=== PATIENT | female | born 1960 | race Caucasian/White ===

== ENCOUNTER 2020-06-04 07:27 | Outpatient (CLI) | payer BC, SELFPAY ==
--- NOTE | ~2020-06-04 | MM_ITS ---
EXAMINATION: MM screening mason BI w elzbieta HISTORY: Screening TECHNIQUE: Craniocaudal and mediolateral oblique 3-D tomosynthesis images were obtained and synthetic 2-D images were generated. CAD analysis was submitted and interpreted. COMPARISON: Comparison to multiple prior studies sequentially, with oldest reviewed study dated 02/22. BREAST PARENCHYMAL COMPOSITION: The breasts are extremely dense, which lowers the sensitivity of mamm ography FINDINGS: There is no evidence of suspicious mass, calcification, or architectural distortion to sugg est malignancy in either breast. There has been no suspicious interval change. IMPRESSION: 1. No mammographic evidence of malignancy. 2. Recommend routine screening mammography in one year. BI-RADS Category 1: Negative Reviewed, dictated and finalized at location A.
== END 2020-06-04 07:28 | disposition home or self-care (01) ==
LOC: ANHIMG 07:30
PROVIDERS: PCP Internal Medicine; Visit Provider Obstetrics & Gynecology Gynecology
DX: Z12.31 Encounter for screening mammogram for malignant neoplasm of breast (principal)
CPT/HCPCS: 77063; 77067

== ENCOUNTER → 2020-08-07 11:52 | Outpatient (CLI) | payer BC, SELFPAY ==
--- NOTE | ~2020-08-07 | US_ITS ---
EXAMINATION: US abdomen limited EXAM DATE: 08/07/2020 12:11 INDICATION: R74.0 - Nonspecific elevation of levels of transaminase and lactic acid dehydrogenase [LD H] TECHNIQUE: Multiple grayscale and Doppler images of the abdomen right upper quadrant were obtained (b y a technologist who performed the scan) and subsequently reviewed. There is no prior study for shyam dias. FINDINGS: The pancreatic head and body are normal in appearance. The pancreatic tail is not visualized. The l iver has normal echogenicity and contour. There are no focal liver lesions identified. There is no evidence of intrahepatic biliary duct dilation. Portal venous flow was seen in the hepatopedal, nor mal direction and has normal Doppler waveform. No right-sided hydronephrosis. Common bile duct measures 4 mm, which is normal. The gallbladder wall is normal in thickness, with ex pected amount of distention. No sonographic evidence of pericholecystic fluid. There is no cholelit hiases. Technologist performing exam reports patient did not demonstrate sonographic Carl's sign. Please note that this sign is less reliable in patients who have received pain medication. IMPRESSION: Unremarkable abdominal ultrasound exam. Reviewed, dictated and finalized at location A. 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
== END ==
PROVIDERS: PCP Internal Medicine; Visit Provider Nurse Practitioner
DX: R74.01 Elevation of levels of liver transaminase levels (principal)
CPT/HCPCS: 76705

== ENCOUNTER 2021-07-02 07:44 | Outpatient (CLI) | payer BC, SELFPAY ==
--- NOTE | ~2021-07-02 | DEXA_ITS ---
Bone Density Report Name: Yulia Hung Age: 60 Sex: Female Ethnicity: White Date of : 1960 Indication: postmenopausal osteoporosis; monitoring treatment; prior fracture; hysterectomy; Referring Provider: ALO HERNANDEZ Study: Bone densitometry was performed. Exam Date: July 02, 2021 Accession number: [id number] Bone Density: Region BMD T-score Z-score Classification AP Spine (L1-L4) 0.782 -2.4 -0.9 Osteopenia Femoral Neck (Left) 0.521 -3.0 -1.6 Osteoporosis Total Hip (Left) 0.665 -2.3 -1.2 Osteopenia Total Hip Bilateral Avg 0.652 -2.4 -1.4 Osteopenia Femoral Neck (Right) 0.549 -2.7 -1.3 Osteoporosis Total Hip (Right) 0.637 -2.5 -1.5 Osteoporosis World Health Organization criteria for BMD impression classify patients as: Normal (T-score at or above -1.0), Osteopenia (T-score between -1.0 and -2.5), or Osteoporosis (T-score at or below -2.5). 10-year Fracture Risk: FRAX not reported because: Some T-score for Spine Total or Hip Total or Femoral Neck at or below -2.5 Treated for osteoporosis Previous Exams: Region Exam Age BMD T-score BMD Change BMD Change Date g/cm2 vs Baseline vs Previous AP Spine(L1-L4) 07/02/2021 60 0.782 -2.4 -0.126(-13.9%) 0.021(2.7%) 06/02/2019 58 0.761 -2.6 -0.147(-16.2%) 0.022(3.0%) 02/28/2017 56 0.739 -2.8 -0.170(-18.7%) 0.003(0.3%) 03/06/2015 54 0.737 -2.8 -0.172(-19.0%) -0.138(-15.8%) 02/01/2011 50 0.875 -1.6 -0.034(-3.7%)* -0.034(-3.7%)* 11/24/2007 47 0.909 -1.3 Total Hip(Left) 07/02/2021 60 0.665 -2.3 -0.054(-7.5%)# 0.015(2.3%) 06/02/2019 58 0.650 -2.4 -0.069(-9.6%)# -0.088(-12.0%) 02/28/2017 56 0.738 -1.7 0.020(2.7%)# 0.059(8.6%)* 03/06/2015 54 0.680 -2.1 -0.039(-5.4%)# -0.092(-11.9%) 02/01/2011 50 0.772 -1.4 0.053(7.4%)* 0.053(7.4%)* 11/24/2007 47 0.719 -1.8 Total Hip(Right) 07/02/2021 60 0.637 -2.5 -0.065(-9.3%)# -0.032(-4.8%)* 06/02/2019 58 0.669 -2.2 -0.033(-4.7%)# -0.042(-5.9%)* 02/28/2017 56 0.711 -1.9 0.009(1.3%)# 0.065(10.0%)* 03/06/2015 54 0.646 -2.4 -0.056(-7.9%)# -0.037(-5.5%)# 02/01/2011 50 0.683 -2.1 -0.019(-2.6%) -0.019(-2.6%) 11/24/2007 47 0.702 -2.0 *Denotes significance at 95% confidence level, LSC for AP Spine = 0.022 g/cm2, LSC for Total Hip = 0.027 g/cm2 Clinical Information Provided by Patient: Has had a low trauma fracture Is being treated for osteoporosis Has used the following medications: Fosamax (i.e. alendr
--- NOTE | ~2021-07-02 | MM_ITS ---
EXAMINATION: MM screening mason BI w elzbieta HISTORY: Screening mammogram, family history of breast cancer in her sister. TECHNIQUE: Craniocaudal and mediolateral oblique 3-D tomosynthesis images were obtained and synthetic 2-D images were generated. CAD analysis was submitted and interpreted. COMPARISON: 06/04/2020, 06/02/2019, 02/28/2017 BREAST PARENCHYMAL COMPOSITION: The breasts are heterogeneously dense, which may obscure small masses . FINDINGS: There is no evidence of suspicious mass, calcification, or architectural distortion to sugg est malignancy in either breast. There has been no suspicious interval change. IMPRESSION: 1. No mammographic evidence of malignancy. 2. Recommend routine screening mammography in one year. BI-RADS Category 1: Negative Reviewed, dictated and finalized at location A.
== END 2021-07-02 07:45 | disposition home or self-care (01) ==
LOC: ANHIMG 07:46
PROVIDERS: PCP Internal Medicine; Visit Provider Obstetrics & Gynecology Gynecology
DX: Z12.31 Encounter for screening mammogram for malignant neoplasm of breast (principal); Z78.0 Asymptomatic menopausal state; M85.89 Other specified disorders of bone density and structure, multiple sites; M81.0 Age-related osteoporosis without current pathological fracture
CPT/HCPCS: 77063; 77067; 77080

== ENCOUNTER 2022-08-13 14:25 | Outpatient (CLI) | payer BC, SELFPAY ==
--- NOTE | ~2022-08-13 | MM_ITS ---
EXAMINATION: MM screening mason BI w elzbieta HISTORY: Screening TECHNIQUE: Craniocaudal and mediolateral oblique 3-D tomosynthesis images were obtained and synthetic 2-D images were generated. CAD analysis was submitted and interpreted. COMPARISON: Comparison to multiple prior studies sequentially, with oldest reviewed study dated 03/06. BREAST PARENCHYMAL COMPOSITION: The breasts are extremely dense, which lowers the sensitivity of mamm ography FINDINGS: There is no evidence of suspicious mass, calcification, or architectural distortion to sugg est malignancy in either breast. There has been no suspicious interval change. IMPRESSION: 1. No mammographic evidence of malignancy. 2. Recommend routine screening mammography in one year. BI-RADS Category 1: Negative Reviewed, dictated and finalized at location A. 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
== END 2022-08-13 14:26 | disposition home or self-care (01) ==
PROVIDERS: PCP Internal Medicine; Visit Provider Nurse Practitioner
DX: Z12.31 Encounter for screening mammogram for malignant neoplasm of breast (principal)
CPT/HCPCS: 77063; 77067

== ENCOUNTER 2023-05-04 13:45 | Outpatient (CLI) | payer BC, SELFPAY ==
--- NOTE | ~2023-05-04 | MR_ITS ---
EXAMINATION: MR breast BI wo/w con INDICATION: Extremely dense breast tissue TECHNIQUE: Axial VIBRANT pre and dynamic post contrast, Sagittal VIBRANT post contrast, Axial T2 STIR ASSET COMPARISON: None CONTRAST: Multihance, 10 cc BREAST COMPOSITION: Extreme fibroglandular tissue FINDINGS: RIGHT BREAST: There is minimal background parenchymal enhancement. No abnormal enhancement is present after contrast administration. No pathologically enlarged axillary or internal mammary lymph nodes a re identified. LEFT BREAST: There is minimal background parenchymal enhancement. No abnormal enhancement is present after contrast administration. No pathologically enlarged axillary or internal mammary lymph nodes ar e identified. IMPRESSION: 1. Unremarkable breast MRI. BI-RADS Category 1: Negative Reviewed, dictated and finalized at location A.
== END 2023-05-04 13:46 | disposition home or self-care (01) ==
LOC: ANHIMG 13:50
PROVIDERS: PCP Internal Medicine; Visit Provider Obstetrics & Gynecology Gynecology
DX: R92.2 Inconclusive mammogram (principal); Z80.3 Family history of malignant neoplasm of breast
CPT/HCPCS: 77049; A9577; C8908

== ENCOUNTER 2023-09-15 09:58 | Outpatient (CLI) | payer BC, SELFPAY ==
--- NOTE | ~2023-09-15 | DEXA_ITS ---
Bone Density Report Name: DARIN COSME Age: 63 Sex: Female Ethnicity: White Date of : 1960 Indication: postmenopausal osteoporosis; monitoring treatment; prior fracture; hysterectomy; Referring Provider: CARMELA, MICHELLE Study: Bone densitometry was performed. Exam Date: September 15, 2023 Accession number: [id number] Bone Density: Region BMD T-score Z-score Classification AP Spine(L1-L4) 0.795 -2.3 -0.6 Osteopenia Femoral Neck (Left) 0.554 -2.7 -1.2 Osteoporosis Total Hip (Left) 0.693 -2.0 -0.9 Osteopenia Femoral Neck (Right) 0.558 -2.6 -1.2 Osteoporosis Total Hip (Right) 0.646 -2.4 -1.3 Osteopenia Total Hip Mean 0.670 -2.2 -1.1 Osteopenia World Health Organization criteria for BMD impression classify patients as: Normal (T-score at or above -1.0), Osteopenia (T-score between -1.0 and -2.5), or Osteoporosis (T-score at or below -2.5). 10-year Fracture Risk: FRAX not reported because: Some T-score for Spine Total or Hip Total or Femoral Neck at or below -2.5 Treated for osteoporosis Previous Exams: Region Exam Age BMD T-score BMD Change BMD Change Date g/cm2 vs Baseline vs Previous AP Spine (L1-L4) 09/15/2023 63 0.795 -2.3 0.058 (7.9%)* 0.013 (1.6%) 07/02/2021 60 0.782 -2.4 0.046 (6.2%)* 0.021 (2.7%) 06/02/2019 58 0.761 -2.6 0.025 (3.4%)* 0.022 (3.0%) 02/28/2017 56 0.739 -2.8 0.003 (0.3%) 0.003 (0.3%) 03/06/2015 54 0.737 -2.8 Total Hip(Left) 09/15/2023 63 0.693 -2.0 0.013 (1.9%) 0.028 (4.3%)* 07/02/2021 60 0.665 -2.3 -0.015 (-2.2%) 0.015 (2.3%) 06/02/2019 58 0.650 -2.4 -0.030 (-4.4%) -0.088 (-12.0% 02/28/2017 56 0.738 -1.7 0.059 (8.6%)* 0.059 (8.6%)* 03/06/2015 54 0.680 -2.1 Total Hip(Right) 09/15/2023 63 0.646 -2.4 0.000 (0.1%) 0.010 (1.5%) 07/02/2021 60 0.637 -2.5 -0.009 (-1.4%) -0.032 (-4.8%) 06/02/2019 58 0.669 -2.2 0.023 (3.5%) -0.042 (-5.9%) 02/28/2017 56 0.711 -1.9 0.065 (10.0%)* 0.065 (10.0%)* 03/06/2015 54 0.646 -2.4 *Denotes significance at 95% confidence level, LSC for AP Spine = 0.022 g/cm2, LSC for Total Hip = 0.027 g/cm2 Clinical Information Provided by Patient: Has had a low trauma fracture Is being treated for osteoporosis Has used the following medications: Prolia (i.e. denosumab), Vitamin D, Calcium Has the following medical conditions: Hysterectomy Patient maximum height was 64.75 Menopause Age: 49 Onset of menses at age 12 Number of child
== END 2023-09-15 09:59 | disposition home or self-care (01) ==
PROVIDERS: PCP Internal Medicine; Visit Provider Nurse Practitioner
DX: M81.0 Age-related osteoporosis without current pathological fracture (principal); M85.88 Other specified disorders of bone density and structure, other site; M85.852 Other specified disorders of bone density and structure, left thigh; M85.851 Other specified disorders of bone density and structure, right thigh
CPT/HCPCS: 77080

== ENCOUNTER 2024-05-10 15:45 | Outpatient (CLI) | payer BC, SELFPAY ==
--- NOTE | ~2024-05-10 | MM_ITS ---
EXAMINATION: MM screening mason BI w elzbieta HISTORY: Screening TECHNIQUE: Craniocaudal and mediolateral oblique 3-D tomosynthesis images were obtained and synthetic 2-D images were generated. CAD analysis was submitted and interpreted. COMPARISON: Comparison to multiple prior studies sequentially, with oldest reviewed study dated 02/17. BREAST PARENCHYMAL COMPOSITION: Dense: The breasts are extremely dense, which lowers the sensitivity of mammography. FINDINGS: There is no evidence of suspicious mass, calcification, or architectural distortion to sugg est malignancy in either breast. There has been no suspicious interval change. IMPRESSION: 1. No mammographic evidence of malignancy. 2. Recommend routine screening mammography in one year. BI-RADS Category 1: Negative Reviewed, dictated and finalized at location B.
== END 2024-05-10 15:46 | disposition home or self-care (01) ==
LOC: ANHIMG 15:47
PROVIDERS: PCP Clinical Nurse Specialist; Visit Provider Nurse Practitioner
DX: Z12.31 Encounter for screening mammogram for malignant neoplasm of breast (principal)
CPT/HCPCS: 77063; 77067

== ENCOUNTER 2025-01-07 00:19 | Emergency (ER) | payer MEDICARE, SELFPAY ==
--- NOTE | ~2025-01-07 | CT_ITS ---
CT of the Abdomen and Pelvis: Indication: Abdominal pain Technique: 2.5 mm axial scans were obtained through the abdomen and pelvis following intravenous adm inistration of 100 cc of Omnipaque 350. Dose reduction technique was used on this scan by utilizing a utomated exposure control and iterative reconstruction technique. The dose-length product (DLP) was 1 88.20 mGy-cm. Findings: Scans through the lung bases are unremarkable. The liver, spleen, pancreas, gallbladder, adrenals and kidneys are within normal limits. No evidence of aortic aneurysm. No lymphadenopathy. No bowel obstruction or bowel wall thickening. There is no evidence to suggest acute appendicitis. Images through the pelvis were performed. There is left ovarian cyst versus left bladder diverticulum with small stone within it. Urinary bladder otherwise unremarkable. Probable calcified right-sided f ibroid present. No ascites. Impression: No acute abnormality. Left ovarian cyst versus left bladder diverticulum with small stone within it. Reviewed, dictated and finalized at [facility]. Impression: No acute abnormality. Left ovarian cyst versus left bladder diverticulum with small stone within it.
[2025-01-07 00:18] VITALS: BP 107/55; PULSE 107; RESP 17; TEMP 36.8; O2SAT 100
[2025-01-07 00:36] LABS: Basophils Percent Auto 0.4 % (0.2-1.2); Eosinophils Percent Auto 0.4 % (0-4.4); Hematocrit 42.5 % (37.0-47.0); Hemoglobin 14.1 g/dL (12.0-15.0); Immature Granulocyte Absolute 0.02 K/mm3 (0.00-0.031); Immature Granulocyte Percent A 0.2 % (0-0.5); Lymphocytes Absolute Auto 0.56 K/mm3 (0.9-3.2); Lymphocytes Percent Auto 6.8 % (18.3-44.2); Mean Corpuscular HGB Conc 33.2 g/dl (32-36); Mean Corpuscular Hemoglobin 28.7 pg (26-34); Mean Corpuscular Volume 86.4 fl (80-100); Monocytes Absolute Auto 0.8 K/mm3 (0.1-0.6); Monocytes Percent Auto 9.3 % (2.6-8.5); Neutrophils Absolute Auto 6.9 K/mm3 (1.3-6.7); Neutrophils Percent Auto 82.9 % (45.5-73.1); Platelet Count Result 204 k/mm3 (150-375); Red Blood Count 4.92 M/mm3 (4.2-5.4); Red Cell Distribution Width 13.8 % (11.5-14.5); White Blood Count 8.3 K/mm3 (4.5-10.0)
--- NOTE | 2025-01-07 01:06 | ECG_ITS ---
Test Date: 2025-01-07 02:21:13 Measurements Intervals [place] Rate: 80 P: 66 MI: 186 QRS: 44 QRSD: 93 T: 73 QT: 415 QTc: 481 Interpretive Statements SINUS RHYTHM WITH OCCASIONAL SUPRAVENTRICULAR PREMATURE COMPLEXES BORDERLINE R WAVE PROGRESSION, ANTERIOR LEADS BORDERLINE ST ABNORMALITY- INF/LAT LEADS BASELINE ARTIFACT- I, III, AVR, AVL ,AVF BORDERLINE ECG No previous ECG available for comparison Electronically Signed On 01-07-2025 06:35:38 CDT by Ramón Matthews D.O.
[2025-01-07 01:10] LABS: Alanine Aminotransferase 21 U/L (6-35); Albumin Level 5.1 g/dL (3.5-5.1); Alkaline Phosphatase 47 U/L (38-126); Anion Gap 17 mmol/L (4-12); Aspartate Amino Transferase 27 U/L (14-36); Bilirubin,Total 0.8 mg/dL (0.2-1.3); Blood Urea Nitrogen 25 mg/dL (7-17); Calcium 10.1 mg/dL (8.4-10.2); Carbon Dioxide 20 mmol/L (22-30); Chloride 102 mmol/L (98-107); Estimated CRCL calculation 53 ml/min; Estimated Glomerular Filt Rate > 60; Glucose 189 mg/dL (65-110); Lipase 105 U/L (23-300); Potassium 4.2 mmol/L (3.4-5.0); Sodium 139 mmol/L (137-145)
[2025-01-07] MEDS: SODIUM CHLORIDE 0.9% IV 1,000 ML 999 ML IV CONT ×2 (01:12→02:15)
[2025-01-07] MEDS: ONDANSETRON INJ 4 MG/2 ML VIAL IV PUSH ×2 (01:12→02:38)
--- OUTSIDE RECORDS SUMMARY | 2025-01-07 02:00 | XMS_ITS | Encounter Summary ---
Author Organization [facility] Address [address] [place] [address] Care Team Providers Care Associate Professor Of Biblical Studies Name Role Phone Ayana Nigel Nyasia QUIÑONES Primary Care Provider [phone] Encounter Details Date Type Department Care Team (Late st Contact Info) Description 06/18/2024 Lab Requisition [facility] - DermPath Lab [address] [place] [id number] Annelise Liang MD [address] [place] [address] Social History Tobacco Use Types Packs/Day Years Used Date Smoking Tobacco: Never Smokeless Tobacco: Never Alcohol Use Standard Drinks/Week Comments Not Currently 0 (1 standard drink = 0.6 oz pur e alcohol) Comments No Sex and Gender Information Value Date Recorded Sex Assigned at Not on file Legal Sex Female 8:41 AM CDT Gender Identity Not on file Sexual Orientation Not on file documented as of this encounter Plan of Treatment Not on file documented as of this encounter Goals Goal Patient Goal Type Associated Problems Recent Progress Patient-Stated? Author Medication Management General On track( 021 10:25 AM CDT) No Jasmin Roa, RN Note: Expected end date: ongoing Interventions: Take all medications as prescribed documented as of this encounter Procedures Procedure Name Priority Date/Time Associated Diagnosis Comments DERMATOPATHOLOGY Routine 06/18/2024 8:20 AM CDT documented in this encounter Results * DERMATOPATHOLOGY (06/18/2024 8:20 AM CDT) Case Report Dermatopathology Report Case: [id number] Authorizing Provider: Annelise Liang MD Collected: 06/18/2024 08:20 AM Ordering Location: [facility] - Received: 06/18/2024 04:23 PM DermPath Lab Pathologist: Gloria Esquivel MD Specimen: Skin, left knee 1:34 PM CDT DERMATOPATHOLOGY LABORATORY Final Diagnosis Specimen A. SKIN, left knee: COMBINED NEVUS (BANAL & BLUE) (D22.9) 1:34 PM CDT DERMATOPATHOLOGY LABORATORY Clinical History R/O: Nevus, Irregular border, Irregular color, Brown papule, SK 1:34 PM CDT DERMATOPATHOLOGY LABORATORY Gross Description Specimen A: Received is one formalin filled container labeled with the patient's name and designated left knee. The specimen consists of a shave biopsy measuring 4x3x1 mm. Jar 0. 1:34 PM CDT DERMATOPATHOLOGY LABORATORY Microscopic Description Specimen A. SKIN, left knee: Within the dermis, there are oval and dendritic shaped melanocytes and melanophages. There are also nests of round and oval melanocytes. 1:34 PM CDT DERMATOPATHOLOGY LABORATORY Disclaimer An external and internal positive and negative controls are appropriate for the histochemical, immunohistochemical and immunofluorescence stain(s) in this case (if any), except where stated explicitly. The performance characteristics of the stain(s) cited in this report were developed and its performance characteristic determined by the Dermatopathology Laboratory at [facility], directed by Dr. Letty Zuniga. These tests need not be, and therefore are not, approved by the [place] Food and Drug Administration. The tests are used for clinical purposes. Billing Codes Specimen Charges Stain Charges 91284 1 1:34 PM CDT DERMATOPATHOLOGY LABORATORY Embedded Images 1:34 PM CDT DERMATOPATHOLOGY LABORATORY Pathology/Cytolo gy TISSUE SPECIMEN FROM SKIN / Unknown 06/18/2024 8:20 AM CDT 06/18/2024 4:23 PM CDT us Annelise Liang MD LAB - PATHOLOGY/CYTOLOGY ORD ERABLES Final Result DERMATOPATHOLOGY LABORATORY [facility] - Department of Dermatology [facility] [address] [place] [address], [address] [phone] documented in this encounter Visit Diagnoses Not on filedocumented in this encounter Care Teams Associate Professor Of Biblical Studies Relationship Specialty Start Date End Date Nigel Piña DO PCP - General 08/26/20 documented as of this encounter
--- OUTSIDE RECORDS SUMMARY | 2025-01-07 02:00 | XMS_ITS | Clinical Summary ---
Author Organization [facility] Address [address] [place] [address] Care Team Providers Care Chief Petroleum Engineer Name Role Phone Nigel Piña DO Primary Care Provider [phone] Source Comments [facility],non-owned Affiliates and Associated Physician Practices is amultiple site organization consisting of ambulatory clinics and hospital sitesin [place], [place], [place] and [place]. This disclosure is being madepursuant to the Care Everywhere program and may not contain all information available regarding this patient. Last updated 18.[facility] Allergies No known active allergies Medications * Be aware that medications may not be up to date on this document. Alwaysverify current medications with the patient. Denosumab (PROLIA SC) Active B COMPLEX-C PO 2 tabs daily Active Cholecalciferol (VITAMIN D-3) 25 MCG (1000 UT) 2 tabs daily Active Calcium Carbonate-Vitami n D ([facility] CALCIUM/VIT D SOFT CHEWS PO) Take 650 mg by mouth Active Biotin 1000 MCG Acti ve Active Problems Problem Noted Date Diagnosed Date Chronic hepatitis C without hepatic coma 020 Overview (01/08/2021): Genotype 1a Date of Exam: 01/08/2021 LSM, kPa 6.0 CAP 149 Osteoporosis 03/20/2020 Family History Medical History Relation Name Comments Hepatitis Brother 1 Lymphoma Brother 2 Cancer - Breast Sister Relation Name Status Comments Brother 1 Brother 2 Sister Social History Tobacco Use Types Packs/Day Years Used Date Smoking Tobacco: Never Smokeless Tobacco: Never Tobacco Cessation:Counseling Given: Yes Alcohol Use Standard Drinks/Week Comments Not Currently 0 (1 standard drink = 0.6 oz pur e alcohol) Comments No Sex and Gender Information Value Date Recorded Sex Assigned at Not on file Legal Sex Female 8:41 AM CDT Gender Identity Not on file Sexual Orientation Not on file Last Filed Vital Signs Vital Sign Reading Time Taken Comments Blood Pressure 115/61 06/25/2021 10:35 AM CDT Pulse 72 06/25/2021 10:35 AM CDT Temperature 36.7 C (98 F) 06/25/2021 10:35 AM CDT Respiratory Rate 16 04/05/2021 12:40 PM CDT Oxygen Saturation 100% 06/25/2021 10:35 AM CDT Inhaled Oxygen Concentration - - Weight 52.2 kg (115 lb) 06/25/2021 10:35 AM CDT Height 164.5 cm (5' 4.75 ) 04/05/2021 12:40 PM C DT Body Mass Index 19.29 04/05/2021 12:40 PM CDT Plan of Treatment Health Maintenance Due Date Last Done Comments BONE DENSITY TESTING 1960 COLOGUARD (AGES 45-75) - COLON CA SCREENING 1960 COLON MONITORING 1960 COLONOSCOPY - COLON CA SCREENING 1960 CT COLONOGRAPHY - COLON CA SCREENING 1960 Colorectal Cancer Screening 1960 FIT - COLON CA SCREENING 1960 FLEX SIG - COLON CA SCREENING 1960 LIPID TESTING 1960 MAMMOGRAM 1960 PAP SMEAR 1960 HIV SCREENING 1974 DTAP/TDAP/TD VACCINES (1 - Tdap) 1978 PNEUMOCOCCAL VACCINE 50+ (1 of 2 - PCV) 1978 ZOSTER VACCINE (1 of 2) 2009 HEPATITIS B VACCINE (1 of 3 - Risk 3-dose series) 2019 Respiratory Syncytial Virus (RSV) Vaccine Pt: or over 60 yrs (1 - Risk 60-74 years 1-dose series) 2019 COVID-19 VACCINE (2 - season) 2024 01/03/2021 DEPRESSION SCREENING 09/26/2024 INFLUENZA VACCINE (Season Ended) 2025 07/07/2020, 07/05/2019, 07/19/2018, Additional history exists HEPATITIS C SCREENING Completed 07/02/2021 , 06/25/2021, 06/17/2021, Additional history exists HIB VACCINE Aged Out No longer eligi ble based on patient's age to complete this topic HPV VACCINE Aged Out No longer eligi ble based on patient's age to complete this topic MENINGOCOCCAL (Group B) VACCINE SHARED DECISION-MAKING Aged Out No longer eligible based on patient's age to complete this topic MENINGOCOCCAL GROUPS A/C/Y/W VACCINE Aged Out No longer eligible based on patient's age to complete this topic Goals Goal Patient Goal Type Associated Problems Recent Progress Patient-Stated? Author Medication Management General On track( 021 10:25 AM CDT) Jasmin Smith, RN Note: Expected end date: ongoing Interventions: Take all medications as prescribed Procedures Procedure Name Priority Date/Time Associated Diagnosis Comments HEPATITIS C RNA QUANTITATIVE Routine 07/02/2021 7:08 AM CDT Chronic hepatitis C without hepatic coma from Last 3 Months or Most Recently Relevant to Health Maintenance Results * HEPATITIS C RNA QUANTITATIVE (07/02/2021 7:08 AM CDT) Hepatitis C Virus Quantitation HCV Not Detected IU/mL [facility] INSURANCE BILL Hepatitis C Virus Log 10 NOT NEEDED log10 IU/mL [facility] INSURANCE BILL Comment: Unable to calculate result since non-numeric result obtained for component test. Ancillary determined the test is not needed. Test Information [facility] INSURANCE BILL Comment:The quantitative ran ge of this assay is 15 IU/mL to 100 million IU/mL. Hepatitis C Virus GenoSure (R) NS3/4A NOT NEEDED [facility] INSURANCE BILL Comment: Not indicated Ancillary determined the test is not needed. Blood BLOOD SPECIMEN / Unknown 07/02/2021 7:08 AM CDT 07/02/2021 Narrative Resulting Agency Comment Lab Testing performed at: [facility] [id number] [place] Norah Griffin BUFFET ATTENDANT-CLINICAL PSYCHOLOGY TEACHER LAB - CHEMISTRY BELA ZAMBRANO Final Result [facility] INSURANCE BILL [address] [place] [address] from Last 3 Months or Most Recently Relevant to Health Maintenance Insurance ANTHEM ANTHEM Care Teams Chief Petroleum Engineer Relationship Specialty Start Date End Date Nigel Piña DO PCP - General 08/26/20
--- OUTSIDE RECORDS SUMMARY | 2025-01-07 02:00 | XMS_ITS | Encounter Summary ---
Author Organization [facility] Address [address] [facility] [place] [address] Care Team Providers Care Piano Instructor Name Role Phone LizbethNigel lopez Primary Care Provider [phone] Encounter Details Date Type Department Care Team (Late st Contact Info) Description 02/08/2019 Lab Requisition [facility] [address] [facility], [place] [phone] Annelise Liang MD [address] [facility] 3 [place] [address] Social History Tobacco Use Types Packs/Day Years Used Date Smoking Tobacco: Never Assessed Comments Unknown Sex and Gender Information Value Date Recorded Sex Assigned at Not on file Legal Sex Female 8:41 AM CDT Gender Identity Not on file Sexual Orientation Not on file documented as of this encounter Plan of Treatment Not on file documented as of this encounter Procedures Procedure Name Priority Date/Time Associated Diagnosis Comments DERMATOPATHOLOGY Routine 02/07/2019 12:0 0 AM CDT documented in this encounter Results * DERMATOPATHOLOGY (02/07/2019 12:00 AM CDT) Case Report Dermatopathology Report Case: [id number] Authorizing Provider: Annelise Liang MD Collected: 02/07/2019 12:00 AM Pathologist: Tim Zuniga MD Received: 02/08/2019 06:17 AM Specimen: Skin, upper abdomen 2:23 PM CDT DERMATOPATHOLOGY LABORATORY Final Diagnosis Specimen A. SKIN, upper abdomen: VACUOLAR INTERFACE DERMATITIS WITH FULL THICKNESS DYSKERATOSIS (L30.8) POST-INFLAMMATORY PIGMENT ALTERATION (L81.9) (see microscopic description and comment) 2:23 PM T DERMATOPATHOLOGY LABORATORY Clinical History Fixed drug, early EM, bite 2:23 PM CDT DERMATOPATHOLOGY LABORATORY Gross Description Specimen A: Received is one formalin filled container labeled with the patient's name and designated upper abdomen. The specimen consists of a shave biopsy measuring 9x8x2 mm. Jar 0. 2:23 PM CDT DERMATOPATHOLOGY LABORATORY Microscopic Description Specimen A. SKIN, upper abdomen: Sections show overlying parakeratosis. There are scattered dyskeratotic keratinocytes throughout the full thickness of the epidermis and vacuolar alteration along the basal cell layer. A perivascular and perifollicular lymphocytic infiltrate with few scattered eosinophils and rare neutrophils is observed in the superficial dermis. There are scattered melanophages in the superficial dermis. COMMENT: Given the parakeratosis, mixed inflammatory infiltrate, and adnexal extension, these histologic findings are favored to represent a fixed drug eruption though a single lesion of erythema multiforme cannot be entirely excluded. 2:23 PM CDT DERMATOPATHOLOGY LABORATORY Disclaimer An external and internal positive and negative controls are appropriate for the histochemical, immunohistochemical and immunofluorescence stain(s) in this case (if any), except where stated explicitly. The performance characteristics of the stain(s) cited in this report were developed and its performance characteristic determined by the Dermatopathology Laboratory at [facility], directed by Dr. Letty Zuniga. These tests need not be, and therefore are not, approved by the [place] Food and Drug Administration. The tests are used for clinical purposes. Billing Codes Specimen Charges Stain Charges 29864 1 2:23 PM CDT DERMATOPATHOLOGY LABORATORY Embedded Images 2:23 PM CDT DERMATOPATHOLOGY LABORATORY Pathology/Cytolog y TISSUE SPECIMEN FROM SKIN / Unknown 02/07/2019 02/08/2019 6:17 AM CDT Annelise Liang MD LAB - PATHOLOGY/CYTOLOGY ORD ERABLES Final Result DERMATOPATHOLOGY LABORATORY [facility] - Department of Dermatology [facility] [facility], 5th Floor Lab B [address] [phone] documented in this encounter Visit Diagnoses Not on filedocumented in this encounter Care Teams Piano Instructor Relationship Specialty Start Date End Date Nigel Piña DO PCP - General 08/26/20 documented as of this encounter
--- OUTSIDE RECORDS SUMMARY | 2025-01-07 02:00 | XMS_ITS | CONTINUITY OF CARE DOCUMENT ---
Author Name yaz mukherjee Address Unknown Organization [facility] Address [address] [address] [place] [address] Phone [phone] Care Team Providers Care Receiver/Laborer Name Role Phone yaz mukherjee Unavailable Unavailable
--- OUTSIDE RECORDS SUMMARY | 2025-01-07 02:00 | XMS_ITS | Encounter Summary ---
Author Organization [facility] Address [address] [facility] [place] [address] Care Team Providers Care Ball Mill Mixer Name Role Phone LizbethNigel lopez Primary Care Provider [phone] Encounter Details Date Type Department Care Team (Late st Contact Info) Description 05/20/2020 Lab Requisition [facility] [address] [facility], [place] [phone] Annelise iLang MD [address] [facility] 3 [place] [address] Social History Tobacco Use Types Packs/Day Years Used Date Smoking Tobacco: Never Smokeless Tobacco: Never Comments No Sex and Gender Information Value Date Recorded Sex Assigned at Not on file Legal Sex Female 8:41 AM CDT Gender Identity Not on file Sexual Orientation Not on file COVID-19 Exposure Response Date Recorded In the last month, have you been in contact with someone who was confirmed or suspected to have Coronavirus / COVID-19? No / Unsure 05/20/2020 11:15 AM CDT documented as of this encounter Plan of Treatment Not on file documented as of this encounter Procedures Procedure Name Priority Date/Time Associated Diagnosis Comments DERMATOPATHOLOGY Routine 05/19/2020 12:0 0 AM CDT documented in this encounter Results * DERMATOPATHOLOGY (05/19/2020 12:00 AM CDT) Case Report Dermatopathology Report Case: [id number] Authorizing Provider: Annelise Liang MD Collected: 05/19/2020 12:00 AM Ordering Location: [facility] Received: 05/20/2020 06:45 AM Pathologist: Gloria Esquivel MD Specimen: Skin, right ala 0 2:11 PM CDT DERMATOPATHOLOGY LABORATORY Final Diagnosis Specimen A. SKIN, right ala: HYPERPLASTIC (HYPERTROPHIC) ACTINIC KERATOSIS; EXTENDING TO THE BASE OF THE SPECIMEN (L57.0) (see microscopic description and comment) 0 2:11 PM CDT DERMATOPATHOLOGY LABORATORY Clinical History R/O BCC vs FP. Non-healing, pink papule. 0 2:11 PM CDT DERMATOPATHOLOGY LABORATORY Gross Description Specimen A: Received is one formalin filled container labeled with the patient's name and designated right ala. The specimen consists of a shave measuring [id number]. Jar 0. 0 2:11 PM CDT DERMATOPATHOLOGY LABORATORY Microscopic Description Specimen A. SKIN, right ala: There is hyperkeratosis alternating with parakeratosis. There is epidermal hyperplasia with disorderly maturation of keratinocytes with nuclear pleomorphism confined to the lower half of the epidermis. This process extends to the base of the specimen. COMMENT: A squamous cell carcinoma cannot be ruled out. Additional deeper sections were obtained and reviewed. 0 2:11 PM CDT DERMATOPATHOLOGY LABORATORY Disclaimer An external and internal positive and negative controls are appropriate for the histochemical, immunohistochemical and immunofluorescence stain(s) in this case (if any), except where stated explicitly. The performance characteristics of the stain(s) cited in this report were developed and its performance characteristic determined by the Dermatopathology Laboratory at [facility], directed by Dr. Letty Zuniga. These tests need not be, and therefore are not, approved by the [place] Food and Drug Administration. The tests are used for clinical purposes. Billing Codes Specimen Charges Stain Charges 52565 1 0 2:11 PM CDT DERMATOPATHOLOGY LABORATORY Embedded Images 0 2:11 PM CDT DERMATOPATHOLOGY LABORATORY Pathology/Cytolog y TISSUE SPECIMEN FROM SKIN / Unknown 05/19/2020 05/20/2020 6:45 AM CDT us Annelise Liang MD LAB - PATHOLOGY/CYTOLOGY ORD ERABLES Final Result DERMATOPATHOLOGY LABORATORY [facility] - Department of Dermatology [employer] [facility]/[address] [phone] documented in this encounter Visit Diagnoses Not on filedocumented in this encounter Care Teams Ball Mill Mixer Relationship Specialty Start Date End Date Nigel Piña DO PCP - General 08/26/20 documented as of this encounter
--- NOTE | 2025-01-07 02:35 | PC.NURSE ---
P ambulated to bathroom to get a urine sample, pt states she had diarrhea at the same time so she was unable to provide a sample. Pt is getting more IV fluids at this time and will try again soon.
[2025-01-07] MEDS: MORPHINE SULFATE (*CRX) 4 MG/ML INJ IV PUSH (02:38)
[2025-01-07] MEDS: DICYCLOMINE HCL INJ 20 MG/2 ML VIAL IM (02:38)
[2025-01-07 03:45] LABS: Add Urine Microscopic? YES; Appearance Urine Clear (Clear); Bacteria Urine None Seen /hpf; Bilirubin Urine Negative (Negative); Blood Urine Negative (Negative); Color Urine Yellow (Yellow); Glucose Urine UA Negative (Negative); Ketones Urine 1+ mg/dL (Negative); Leukocyte Esterase Ur Negative LEU/UL (Negative); Nitrate Urine Negative (Negative); Non Pathogenic Casts 0-2; Protein Urine Trace mg/dL (Negative); RBC Urine 0-2 /hpf (0-2); Specific Grav Ur 1.038 (1.001-1.035); Squamous Epithelial Cell Urine None Seen /hpf (Few); Urobilinogen Urine 0.2 mg/dL (<2.0); WBC Urine 0-5 /hpf (0-3); pH Urine 8.5 (5.0-9.0)
--- NOTE | 2025-01-07 03:52 | ED_ITS ---
HPI - General Adult General Chief complaint: Nausea/Vomiting/Diarrhea Stated complaint: N/V/D X 3 HOURS Time Seen by Provider: 01/07/25 01:40 History of Present Illness HPI narrative: Patient is a 64-year-old female presents emergency department chief complaint of nausea vomiting diarrhea since 8:15 p.m.. Patient states she got some cramping throughout her abdomen reports that she has been unable to keep anything down reports she has had multiple bouts of diarrhea the patient reports she feels very dehydrated Related Data Home Medications ?Medication ?Instructions ?Recorded ?Confirmed ?Last Taken ?Type calcium acetate 667 mg tablet 667 mg PO ONCE 07/14/22 07/23/24 Unknown History cholecalciferol (vitamin D3) 50 50 mcg PO DAILY 07/14/22 07/23/24 Unknown History mcg (2,000 unit) capsule vitamin B complex (B 1 tablet PO DAILY 07/14/22 07/23/24 Unknown History Complex-Vitamin B12 tablet) Allergies Allergy/AdvReac Type Severity Reaction Status Date / Time No Known Allergies Allergy Unverified 07/23/24 08:10 Review of Systems 2 Review of Systems: A 10 system review of systems was completed on the patient and is negative except for what is stated in the HPI. Nursing and ancillary documentation was reviewed. [facility] Past Medical History Medical History Hepatitis C Positive hepatitis C antibody test Leukopenia Leukocytosis Hypermobile Teresa-Danlos syndrome Lipedema Urinary tract infection Lymphedema June 2019 Neck pain Surgical History Surgical History History of appendectomy History of hysterectomy Family History Family History Sibling Family history of lymphoma Family history of malignant neoplasm of breast in first degree relative Social History Social History Smoking status: Never smoker Alcohol intake: never Current Housing: Decline to Answer Concerned About Future Housing: Decline to Answer Difficulty Paying Gas/Electric Bills: Decline to Answer Difficulty Paying for Meds: Decline to Answer Currently Unemployed: Decline to Answer Education: Decline to Answer Difficulty w/ Childcare or Family Care: Decline to Answer Exam 2 Narrative: GENERAL: Well-appearing, well-nourished, and in no acute distress. HEAD: Normocephalic, atraumatic. EYES: PERRLA and EOMI. ENT: Nares clear, no rhinorrhea or epistaxis. Mucous membranes moist. NECK: Supple. CHEST: Clear to auscultation. No respiratory distress. HEART: Regular rate and rhythm. No murmur heard. Normal peripheral pulses. ABDOMEN: Soft, diffusely tender to palpation on exam, nondistended, normal active bowel sounds. EXTREMITIES: Normal range of motion. No edema. SKIN: Warm, dry, no rash. NEURO: No focal deficits. Alert and oriented x3. PSYCH: Normal mood and affect. Course Vital Signs Vital signs: Vital Signs Temperature 36.8 C 01/07/25 00:18 Pulse Rate 107 H 01/07/25 00:18 Respiratory Rate 17 01/07/25 00:18 Blood Pressure 107/55 L 01/07/25 00:18 Pulse Oximetry 100 01/07/25 00:18 Temperature 36.8 C 01/07/25 00:18 Pulse Rate 93 01/07/25 04:23 Respiratory Rate 15 01/07/25 04:23 Blood Pressure 100/55 L 01/07/25 04:23 Pulse Oximetry 95 01/07/25 04:23 Medical Decision Making MDM Narrative Medical decision making narrative: Differential diagnosis includes gastroenteritis, intra-abdominal infection, colitis, diverticulitis, appendicitis Laboratory studies were obtained on the patient showed a white count of 8.3 hemoglobin was 14.1 electrolytes were within normal limits CT scan showed evidence of enteritis The patient received IV fluids and is feeling much better Vital Signs Vital Signs: Vital Signs Temperature 36.8 C 01/07/25 00:18 Pulse Rate 107 H 01/07/25 00:18 Respiratory Rate 17 01/07/25 00:18 Blood Pressure 107/55 L 01/07/25 00:18 Pulse Oximetry 100 01/07/25 00:18 Temperature 36.8 C 01/07/25 00:18 Pulse Rate 93 01/07/25 04:23 Respiratory Rate 15 01/07/25 04:23 Blood Pressure 100/55 L 01/07/25 04:23 Pulse Oximetry 95 01/07/25 04:23 Lab Data 01/07/25 00:28 01/07/25 00:28 Labs: Lab Results 01/07/25 01/07/25 Range/Units 00:28 03:33 WBC 8.3 (4.5-10.0) K/mm3 RBC 4.92 (4.2-5.4) M/mm3 Hgb 14.1 (12.0-15.0) g/dL Hct 42.5 (37.0-47.0) % MCV 86.4 (80-100) fl MCH 28.7 (26-34) pg MCHC 33.2 (32-36) g/dl RDW 13.8 (11.5-14.5) % Plt Count 204 (150-375) k/mm3 MPV 9.0 (7.4-10.4) fl Immature Gran % (Auto) 0.2 (0-0.5) % Neut % (Auto) 82.9 H (45.5-73.1) % Lymph % (Auto) 6.8 L (18.3-44.2) % Pettis % (Auto) 9.3 H (2.6-8.5) % Eos % (Auto) 0.4 (0-4.4) % Baso % (Auto) 0.4 (0.2-1.2) % Lymph # (Auto) 0.56 L (0.9-3.2) K/mm3 Pettis # (Auto) 0.8 H (0.1-0.6) K/mm3 Eos # (Auto) 0.0 (0-0.3) K/mm3 Baso # (Auto) 0.0 (0.0-0.1) K/mm3 Abs Immat Gran (auto) 0.02 (0.00-0.031) K/mm3 Absolute Neuts (auto) 6.9 H (1.3-6.7) K/mm3 Absolute Nucleated RBC 0.000 (0.0-0.012) K/mm3 Nucleated RBC % 0.0 (0.0-0.2) % Sodium 139 (137-145) mmol/L Potassium 4.2 (3.4-5.0) mmol/L Chloride 102 (98-107) mmol/L Carbon Dioxide 20 L (22-30) mmol/L Anion Gap 17 H (4-12) mmol/L BUN 25 H (7-17) mg/dL Creatinine 0.67 L (0.7-1.0) mg/dL Estim Creat Clear Calc 53 ml/min Estimated GFR > 60 (59 - ) Glucose 189 H (65-110) mg/dL Calcium 10.1 (8.4-10.2) mg/dL Total Bilirubin 0.8 (0.2-1.3) mg/dL AST 27 (14-36) U/L ALT 21 (6-35) U/L Alkaline Phosphatase 47 (38-126) U/L Total Protein 8.0 (6.3-8.2) g/dL Albumin 5.1 (3.5-5.1) g/dL Lipase 105 (23-300) U/L Urine Color Pending Urine Appearance Pending Urine pH Pending Ur Specific [place] Pending Urine Protein Pending Urine Glucose (UA) Pending Urine Ketones Pending Ur Blood (Man) Pending Urine Nitrate Pending Urine Bilirubin Pending Urine Urobilinogen Pending Leukocyte Esterase Rfl Pending Discharge Plan Discharge Clinical Impression: Gastroenteritis Patient Disposition: Home Condition: Stable Instructions: Antibiotic Form, Gastroenteritis (ED), Acute Nausea and Vomiting (ED), Acute Diarrhea (ED) Patient Language: [place] Prescriptions: New dicyclomine 20 mg tablet 20 mg PO QID PRN (Reason: abdominal discomfort) Qty: 20 0RF ondansetron 4 mg tablet,disintegrating 4 mg PO Q8H PRN (Reason: nausea and vomiting) Qty: 10 0RF No Action cholecalciferol (vitamin D3) 50 mcg (2,000 unit) capsule 50 mcg PO DAILY vitamin B complex [B Complex-Vitamin B12] Tablet 1 tablet PO DAILY calcium acetate 667 mg tablet 667 mg PO ONCE sertraline 100 mg tablet 100 mg PO DAILY Qty: 90 1RF doxepin 25 mg capsule 25 mg PO QHS PRN (Reason: insomnia) Qty: 20 0RF Prolia 60 mg/mL syringe 60 mg subcut [id number] Qty: 1 0RF Prolia 60 mg/mL syringe 60 mg subcut [id number] Qty: 1 2RF Follow-up/Referrals: Nigel Piña, [Primary Care Provider] -
[2025-01-07 04:23] VITALS: BP 100/55; PULSE 93; RESP 15; O2SAT 95
[2025-01-07 04:51] VITALS: BP 112/57; PULSE 84; RESP 17; O2SAT 98
== END 2025-01-07 05:00 | disposition home or self-care (01) ==
PROVIDERS: Emergency Provider Emergency Medicine; PCP Internal Medicine
DX: K52.9 Noninfective gastroenteritis and colitis, unspecified (principal); B19.20 Unspecified viral hepatitis C without hepatic coma; Q79.62 Hypermobile Ehlers-Danlos syndrome; Z87.440 Personal history of urinary (tract) infections; Z90.710 Acquired absence of both cervix and uterus; Z79.899 Other long term (current) drug therapy; Z79.620 Long term (current) use of immunosuppressive biologic
CPT/HCPCS: 36415; 74177; 80053; 81001; 83690; 85025; 93005; 96361; 96372; 96374; 96375; 96376; 99284; J0500; J2270; J2405; J7030; Q9967

== ENCOUNTER 2025-05-20 01:21 | Day surgery (SDC) | payer MEDICARE, SELFPAY ==
[2025-05-06 11:11] VITALS: BMI 18.3
--- OUTSIDE RECORDS SUMMARY | 2025-05-20 01:24 | XMS_ITS | Clinical Summary ---
Author Organization [facility] Address [address] [facility] [place] [address] Care Team Providers Care Piledriver Carpenter Name Role Phone Nigel Piña DO Primary Care Provider [phone]- [phone] Source Comments [facility],non-owned Affiliates and Associated Physician Practices is amultiple site organization consisting of ambulatory clinics and hospital sitesin [place], [place] and [place]. This disclosure is being madepursuant to the Care Everywhere program and may not contain all information available regarding this patient. Last updated 18.[facility] Allergies No known active allergies Medications * [...] 10:35 AM CDT Height 164.5 cm (5' 4.75) 04/05/2021 12:40 PM C DT Body Mass [...] SCREENING 1959 LIPID TESTING 1959 MAMMOGRAM 1959 HIV SCREENING 1974 DTAP/TDAP/TD VACCINES (1 - Tdap) 1978 PNEUMOCOCCAL VACCINE 50+ (1 of 2 - PCV) 1978 PAP SMEAR 1980 ZOSTER VACCINE (1 of 2) 2009 HEPATITIS B VACCINE (1 of 3 - Risk 3-dose series) 2019 Respiratory Syncytial Virus (RSV) Vaccine Pt: or over 60 yrs (1 - Risk 60-74 years 1-dose series) 2019 COVID-19 VACCINE (2 - season) 2024 01/03/2021 DEPRESSION SCREENING 09/26/2024 INFLUENZA VACCINE (#1) 2025 0, 07/05/2019, 07/19/2018, Additional history exists HEPATITIS C [...] Resulting Agency Comment Lab Testing performed at: [facility] [id number] Norah Griffin 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
--- OUTSIDE RECORDS SUMMARY | 2025-05-20 01:24 | XMS_ITS | Encounter Summary ---
Author Organization [facility] Address [address] [facility] [place] [address] Care Team Providers Care Coloring Room Man Name Role Phone Ayana Nigel Nyasia QUIÑONES Primary Care Provider Encounter Details Date Type Department Care Team (Late st Contact Info) Description 06/18/2024 Lab Requisition [facility] - Derm[facility] Lab [address] [facility], [place] [phone] Annelise Liang MD [address] [facility] [address] [place] [address] Social History Tobacco Use Types Packs/Day Years [...] AM CDT) Case Report Dermatopathology Report Case: [id number] Authorizing Provider: Annelise Liang MD Collected: 06/18/2024 08:20 AM Ordering Location: [facility] - Received: 06/18/2024 04:23 PM DermPath Lab Pathologist: Gloria Esquivel MD Specimen: Skin, left knee 1:34 PM CDT DERMATOPATHOLOGY LABORATORY Final Diagnosis Specimen A. SKIN, left knee: COMBINED NEVUS (BANAL & BLUE) (D22.9) 1:34 PM CDT DERMATOPATHOLOGY LABORATORY at 1334 CDT Clinical History R/O: Nevus, Irregular border, Irregular [...] characteristic determined by the Dermatopathology Laboratory at [facility], directed by Dr. Letty Zuniga. These tests need not be, and therefore are not, approved by the [place] Food and Drug Administration. The tests are used for clinical purposes. Billing Codes Specimen Charges Stain Charges 68234 1 1:34 PM CDT DERMATOPATHOLOGY LABORATORY Embedded Images 1:34 PM CDT DERMATOPATHOLOGY LABORATORY Pathology/Cytolo gy TISSUE SPECIMEN FROM SKIN / Unknown 06/18/2024 8:20 AM CDT 06/18/2024 4:23 PM CDT us Annelise Liang MD LAB - PATHOLOGY/CYTOLOGY ORD ERABLES Final Result DERMATOPATHOLOGY LABORATORY [facility] - Department of Dermatology [facility] [address] [place] [address], [address] [phone] documented in this encounter Visit Diagnoses Not on filedocumented in this encounter Care Teams Coloring Room Man Relationship Specialty Start Date End Date Nigel Piña DO PCP - General 08/26/20 documented as of this encounter
--- OUTSIDE RECORDS SUMMARY | 2025-05-20 01:24 | XMS_ITS | Encounter Summary ---
Author Organization [facility] Address [address] [facility] [place] [address] Care Team Providers Care Debt Counselor Name Role Phone LizbethNigel lopez Primary Care Provider [phone]- [phone] Encounter Details Date Type Department Care Team (Late st Contact Info) Description 05/20/2020 Lab Requisition [facility] [address] [facility], [place] [phone] Annelise Liang MD [address] [facility] [address] [place] [address] Social History Tobacco Use Types Packs/Day Years [...] AM CDT) Case Report Dermatopathology Report Case: [id number] Authorizing Provider: Annelise Liang MD Collected: 05/19/2020 12:00 AM Ordering Location: [facility] Lab Received: 05/20/2020 06:45 AM Pathologist: Gloria Esquivel MD Specimen: Skin, right ala 0 2:11 PM CDT DERMATOPATHOLOGY LABORATORY Final Diagnosis Specimen A. SKIN, right ala: HYPERPLASTIC (HYPERTROPHIC) ACTINIC KERATOSIS; EXTENDING TO THE BASE OF THE SPECIMEN (L57.0) (see microscopic description and comment) 0 2:11 PM CDT DERMATOPATHOLOGY LABORATORY at 1411 CDT Clinical History R/O BCC vs FP. Non-healing, pink papule. 0 2:11 PM CDT DERMATOPATHOLOGY LABORATORY Gross Description Specimen A: Received is one formalin filled container labeled with the patient's name and designated right ala. The specimen consists of a shave measuring [id number]. Jar 0. 0 2:11 PM CDT DERMATOPATHOLOGY [...] purposes. Billing Codes Specimen Charges Stain Charges [id number] 1 0 2:11 PM CDT DERMATOPATHOLOGY LABORATORY Embedded Images 0 2:11 PM CDT DERMATOPATHOLOGY LABORATORY Pathology/Cytolog y TISSUE SPECIMEN FROM SKIN / Unknown 05/19/2020 05/20/2020 6:45 AM CDT us Annelise Liang MD LAB - PATHOLOGY/CYTOLOGY ORD ERABLES Final Result DERMATOPATHOLOGY LABORATORY [facility] - Department of Dermatology [facility]/[address] [phone] documented in this encounter Visit Diagnoses Not on filedocumented in this encounter Care Teams Debt Counselor Relationship Specialty Start Date End Date Nigel Piña DO PCP - General 08/26/20 documented as of this encounter
--- OUTSIDE RECORDS SUMMARY | 2025-05-20 01:24 | XMS_ITS | Encounter Summary ---
Author Organization [facility] Address [address] [place] [address] Care Team Providers Care Project Hire Name Role Phone LizbethNigel lopze Primary Care Provider Encounter Details Date Type Department Care Team (Late st Contact Info) Description 02/08/2019 Lab Requisition [facility] [address] [facility], [place] [phone] Annelise Liang MD [address] [facility] 3 [place] [address] Social History Tobacco Use Types Packs/Day Years [...] AM CDT) Case Report Dermatopathology Report Case: [id number] Authorizing Provider: Annelise Liang MD Collected: 02/07/2019 12:00 AM Pathologist: Tim Zuniga MD Received: 02/08/2019 06:17 AM Specimen: Skin, upper abdomen 2:23 PM CDT DERMATOPATHOLOGY LABORATORY Final Diagnosis Specimen A. SKIN, upper abdomen: VACUOLAR INTERFACE DERMATITIS WITH FULL THICKNESS DYSKERATOSIS (L30.8) POST-INFLAMMATORY PIGMENT ALTERATION (L81.9) (see microscopic description and comment) 2:23 PM CDT DERMATOPATHOLOGY LABORATORY at 1423 CDT Clinical History Fixed drug, early EM, bite [...] characteristic determined by the Dermatopathology Laboratory at [facility], directed by Dr. Letty Zuniag. These tests need not be, and therefore are not, approved by the [place] Food and Drug Administration. The tests are used for clinical purposes. Billing Codes Specimen Charges Stain Charges 83995 1 2:23 PM CDT DERMATOPATHOLOGY LABORATORY Embedded Images 2:23 PM CDT DERMATOPATHOLOGY LABORATORY Pathology/Cytolog y TISSUE SPECIMEN FROM SKIN / Unknown 02/07/2019 02/08/2019 6:17 AM CDT Annelise Liang MD LAB - PATHOLOGY/CYTOLOGY ORD ERABLES Final Result DERMATOPATHOLOGY LABORATORY [facility] - Department of Dermatology [facility] [facility], 5th Floor Lab B [address] [phone] documented in this encounter Visit Diagnoses Not on filedocumented in this encounter Care Teams Project Hire Relationship Specialty Start Date End Date Nigel Piña DO PCP - General 08/26/20 documented as of this encounter
[2025-05-20 08:34] VITALS: BP 131/74; PULSE 72; RESP 18; TEMP 37; O2SAT 99
[2025-05-20 08:36] VITALS: BMI 16.8
[2025-05-20] MEDS: LACTATED RINGERS 1,000 ML 150 ML IV CONT (08:45)
--- NOTE | 2025-05-20 08:55 | PM.HPGS ---
History of Present Illness History of Present Illness Consent: Risks, benefits, and alternatives have been discussed and questions answered. Patient agrees to proceed with procedure. Chief complaint: Other fecal abnormalities Narrative: Yulia Hung is a 64 year old female here for positive cologuard, had colonoscopy 15 years ago Review of Systems Review of Systems: All systems reviewed & are unremarkable except as noted in HPI and below PMFSH Past Medical History Medical History Hepatitis C Positive hepatitis C antibody test Leukopenia Leukocytosis Hypermobile Teresa-Danlos syndrome Lipedema Urinary tract infection Lymphedema June 2019 Neck pain Surgical History Surgical History History of appendectomy History of hysterectomy Family History Family History Sibling Family history of lymphoma Family history of malignant neoplasm of breast in first degree relative Social History Social History Smoking status: Never smoker Alcohol intake: never Current Housing: Decline to Answer Concerned About Future Housing: Decline to Answer Difficulty Paying Gas/Electric Bills: Decline to Answer Difficulty Paying for Meds: Decline to Answer Currently Unemployed: Decline to Answer Education: Decline to Answer Difficulty w/ Childcare or Family Care: Decline to Answer Meds Home Medications and Allergies Home Medications ?Medication ?Instructions ?Recorded ?Confirmed ?Type calcium acetate 667 mg tablet 667 mg PO ONCE 07/14/22 05/06/25 History cholecalciferol (vitamin D3) 50 50 mcg PO DAILY 07/14/22 05/20/25 History mcg (2,000 unit) capsule vitamin B complex (B 1 tablet PO DAILY 07/14/22 05/20/25 History Complex-Vitamin B12 tablet) doxepin 25 mg capsule 25 mg PO QHS PRN insomnia #20 caps 07/15/23 05/06/25 Rx denosumab 60 mg/mL subcutaneous 60 mg subcut [id number] #1 mL 01/04/25 05/06/25 Rx syringe (Prolia) denosumab 60 mg/mL subcutaneous 60 mg subcut [id number] #1 mL 01/04/25 05/06/25 Rx syringe (Prolia) sertraline 100 mg tablet 100 mg PO DAILY #90 tabs 03/25/25 05/20/25 Rx Allergies Allergy/AdvReac Type Severity Reaction Status Date / Time No Known Allergies Allergy Verified 05/20/25 08:32 Vital Signs Vital Signs - 24 hr 05/20/25 08:34 Temperature 98.6 F Pulse Rate 72 Respiratory Rate 18 Blood Pressure 131/74 Pulse Oximetry 99 Oxygen Delivery Room Air Exam Const: General: comfortable and no acute distress HENMT: Face/Nose/Sinus: Normal nares present Eyes: General: appearance normal, both eyes and all related structures Neck: Neck: no JVD Resp: Auscultation: clear to auscultation bilaterally Cardio: Rate: regular rate Rhythm: regular rhythm GI: Inspection: non-distended GI Palp: Yes Soft to palpation Skin: General skin exam: normal color Neuro: Speech: normal speech Extrem: General: normal to inspection Psych: Mental Status: mental status grossly normal Assessment and Plan Assessment and plan (1) Positive colorectal cancer screening using Cologuard test: Code(s): R19.5 - Other fecal abnormalities Status: Acute Assessment and Plan: colonoscopy
--- NOTE | 2025-05-20 08:56 | WPDANESEPPF ---
Anes - Initial Pre Proc Eval Procedure: Operation Date: 05/20/25 09:30 Proposed Procedures p Diagnostic Colonoscopy - Rufus Luong MD Date/Time: 05/20/25 08:56 Surgeon: Rufus Luong MD Patient Data Age: 64 Gender: F Height: 1.65 m Weight: 45.9 kg Last Vital Signs Temp 98.6 F 05/20/25 08:34 Pulse 72 05/20/25 08:34 Resp 18 05/20/25 08:34 BP 131/74 05/20/25 08:34 Pulse Ox 99 05/20/25 08:34 O2 Del Method Room Air 05/20/25 08:34 Allergies Allergy/AdvReac Type Severity Reaction Status Date / Time No Known Allergies Allergy Verified 05/20/25 08:32 Home Medications ?Medication ?Instructions ?Recorded ?Confirmed ?Type calcium acetate 667 mg tablet 667 mg PO ONCE 07/14/22 05/06/25 History cholecalciferol (vitamin D3) 50 50 mcg PO DAILY 07/14/22 05/20/25 History mcg (2,000 unit) capsule vitamin B complex (B 1 tablet PO DAILY 07/14/22 05/20/25 History Complex-Vitamin B12 tablet) doxepin 25 mg capsule 25 mg PO QHS PRN insomnia #20 caps 07/15/23 05/06/25 Rx denosumab 60 mg/mL subcutaneous 60 mg subcut [id number] #1 mL 01/04/25 05/06/25 Rx syringe (Prolia) denosumab 60 mg/mL subcutaneous 60 mg subcut [id number] #1 mL 01/04/25 05/06/25 Rx syringe (Prolia) sertraline 100 mg tablet 100 mg PO DAILY #90 tabs 03/25/25 05/20/25 Rx Patient hx anesthesia problems: none Family hx anesthesia problems: none Results Review: All pre-operative results and documents have been reviewed as part of the pre-operative evaluation. [facility] Past Medical History Medical History Hepatitis C Positive hepatitis C antibody test Leukopenia Leukocytosis Hypermobile Teresa-Danlos syndrome Lipedema Urinary tract infection Lymphedema June 2019 Neck pain Surgical History Surgical History History of appendectomy History of hysterectomy Family History Family History Sibling Family history of lymphoma Family history of malignant neoplasm of breast in first degree relative Social History Social History Smoking status: Never smoker Alcohol intake: never Current Housing: Decline to Answer Concerned About Future Housing: Decline to Answer Difficulty Paying Gas/Electric Bills: Decline to Answer Difficulty Paying for Meds: Decline to Answer Currently Unemployed: Decline to Answer Education: Decline to Answer Difficulty w/ Childcare or Family Care: Decline to Answer Anes - Eval Final PreProcedure Day of Procedure 05/20/25 08:56 Patient weight: thin Heart: regular rate and rhythm Lungs: clear to auscultation Airway: Mallampati scale class II Neurological: alert and oriented ASA classification: II Anesthetic plan: proceed Anesthesia type and monitoring: general GIVS Results Review: All pre-operative results and documents have been reviewed as part of the pre-operative evaluation. Informed Consent: The patient's anesthetic plan and its attendant risks and benefits were discussed with the patient/family/POA. Questions were solicited and answers provided to the satisfaction of the patient/family/POA.
--- NOTE | 2025-05-20 09:08 | P.PNAN_ITS ---
Anes - Eval Final PreProcedure Day of Procedure 05/20/25 09:08 Patient weight: thin Heart: regular rate and rhythm Lungs: clear to auscultation Airway: Mallampati scale class II Neurological: alert and oriented Last oral intake: >/= 8 hours ASA classification: III Emergent: no Anesthetic plan: proceed Anesthesia type and monitoring: general GIVS and standard monitoring Other findings: exam per MG Results Review: All pre-operative results and documents have been reviewed as part of the pre- operative evaluation. Informed Consent: The patient's anesthetic plan and its attendant risks and benefits were discussed with the patient/family/POA. Questions were solicited and answers provided to the satisfaction of the patient/family/POA.
--- NOTE | 2025-05-20 09:17 | S_PTH ---
PATIENT: Yulia Hung LOC: [facility] Styles#:[id number] AGE/SX: 64/F ROOM: RE05/20/[address]: Rufus uLong MD : 1960 BED: DIS: 05/20/2025 SPEC #: [id number] RECD: 05/20/25 10:31 STATUS: BETO REJacqui #: [id number] KERRY: 05/20/25 09:[address]: Rufus Luong DEPT: [facility] Surgical RECD BY: Lay Issa ENTERED: 05/20/25 10:31 SP TYPE: Surgical OTHR DR: Bren Ryan, HARJIT Tissues: A - Colon Polypectomy B - Biopsy Procedures: Hematoxylin and Eosin Stain Gross and Microscopic Level 4
[2025-05-20 09:18] VITALS: BP 94/60; PULSE 65; RESP 15; O2SAT 100
[2025-05-20 09:28] VITALS: BP 105/66; PULSE 60; RESP 14; O2SAT 100
[2025-05-20 09:38] VITALS: BP 125/71; PULSE 53; RESP 18; O2SAT 100
== END 2025-05-20 09:50 | disposition home or self-care (01) ==
PROVIDERS: PCP Clinical Nurse Specialist; Referring Provider Clinical Nurse Specialist; Visit Provider Internal Medicine Gastroenterology
PROC: 0DJD8ZZ Inspection of Lower Intestinal Tract, Via Natural or Artificial Opening Endoscopic (ICD-10-PCS; CPT 45378; principal; 2025-05-20 09:30)
DX: R19.5 Other fecal abnormalities (principal); K62.1 Rectal polyp; K64.8 Other hemorrhoids; K57.30 Diverticulosis of large intestine without perforation or abscess without bleeding; K62.89 Other specified diseases of anus and rectum; Q79.62 Hypermobile Ehlers-Danlos syndrome; Z98.890 Other specified postprocedural states; Z80.3 Family history of malignant neoplasm of breast
CPT/HCPCS: 45380; 88305; J2003; J2704; J7120

== ENCOUNTER 2025-06-18 14:13 | Outpatient (CLI) | payer MEDICARE, SELFPAY ==
--- NOTE | ~2025-06-18 | MM_ITS ---
EXAMINATION: MM screening mason BI w elzbieta HISTORY: Screening TECHNIQUE: Craniocaudal and mediolateral oblique 3-D tomosynthesis images were obtained and synthetic 2-D images were generated. CAD analysis was submitted and interpreted. COMPARISON: 08/13/2022 BREAST PARENCHYMAL COMPOSITION: The breasts are extremely dense, which lowers the sensitivity of mammography. FINDINGS: There is no evidence of suspicious mass, calcification, or architectural distortion to suggest malignancy. There has been no suspicious interval change. IMPRESSION: 1. No mammographic evidence of malignancy. Recommend routine screening mammography in one year. BI-RADS Category 2: Benign finding(s) Reviewed, dictated and finalized at location Q. IMPRESSION: 1. No mammographic evidence of malignancy. Recommend routine screening mammogra phy in one year. BI-RADS Category 2: Benign finding(s)
--- OUTSIDE RECORDS SUMMARY | 2025-06-18 14:27 | XMS_ITS | Clinical Summary ---
Author Organization [facility] Address [address] [place] [address] Care Team Providers Care Travel Journalist Name Role Phone Nigel Piña DO Primary Care Provider [phone] Source Comments [facility],non-owned Affiliates and Associated Physician Practices is amultiple site organization consisting of ambulatory clinics and hospital sitesin [place], [place], [place] and [place]. This disclosure is being madepursuant to the Care Everywhere program and may not contain all information available regarding this patient. Last updated 18.[facility] Allergies No known active allergies Medications * [...] - Risk 60-74 years 1-dose series) 2019 DEPRESSION SCREENING 09/26/2024 MEDICARE AWV CALENDAR YEAR 2024 COVID-19 VACCINE (2 - 2024- season) 2025 01/03/2021 INFLUENZA VACCINE (#1) 2025 0, 07/05/2019, 07/19/2018, [...] Resulting Agency Comment Lab Testing performed at: [facility] [phone] us Norah Griffin AUTOMATIC CHIEF-DIRECTOR OF EDUCATION AND TRAINING LAB - CHEMISTRY BELA KENYA Final Result [facility] INSURANCE BILL [address] [place] [address] from Last 3 Months or Most Recently Relevant to Health Maintenance Insurance ANTHEM ANTHEM [employer]ET[employer] MEDICARE ADV SELF PAY NO INSURANCE Member Subscriber Plan / Payer (Ef fective for All Dates) Name:Yulia Cosme Member ID:Not on file Relation to Subscriber:Not on file Name:YULIA COSME Subscriber ID:Not on file (Home) Address: [address] [place] [id number] Payer ID:Not on file Group ID:Not on file Type:Self Pay Address: [place], [place] Care Teams Travel Journalist Relationship Specialty Start Date End Date Nigel Piña DO PCP - General 08/26/20
--- OUTSIDE RECORDS SUMMARY | 2025-06-18 14:28 | XMS_ITS | Encounter Summary ---
Author Organization [facility] Address [address] [place] [address] Care Team Providers Care Farm Implement Mechanic Name Role Phone Ayana Nigel Nyasia QUIÑONES Primary Care Provider Encounter Details Date Type Department Care Team (Late st Contact Info) Description 06/18/2024 Lab Requisition [facility] - [facility] Lab [address] [facility], [place] [phone] Annelise Liang MD [address] [facility] 3 [place] [address] Social History Tobacco Use Types Packs/Day Years [...] AM CDT) Case Report Dermatopathology Report Case: [id number] Authorizing Provider: Annelise Liang MD Collected: 06/18/2024 08:20 AM Ordering Location: [facility] - Received: 06/18/2024 04:23 [...] characteristic determined by the Dermatopathology Laboratory at [facility], directed by Dr. Letty Zuniga. These tests need not be, and therefore are not, approved by the [place] Food and Drug Administration. The tests are used for clinical purposes. Billing Codes Specimen Charges Stain Charges 96024 1 1:34 PM CDT DERMATOPATHOLOGY LABORATORY Embedded Images 1:34 PM CDT DERMATOPATHOLOGY LABORATORY Pathology/Cytolo gy TISSUE SPECIMEN FROM SKIN / Unknown 06/18/2024 8:20 AM CDT 06/18/2024 4:23 PM CDT us Annelise Liang MD LAB - PATHOLOGY/CYTOLOGY ORD ERABLES Final Result DERMATOPATHOLOGY LABORATORY [facility] - Department of Dermatology [facility] [address] [place] [address], [address] [phone] documented in this encounter Visit Diagnoses Not on filedocumented in this encounter Care Teams Farm Implement Mechanic Relationship Specialty Start Date End Date Nigel Piña DO PCP - General 08/26/20 documented as of this encounter
--- OUTSIDE RECORDS SUMMARY | 2025-06-18 14:28 | XMS_ITS | Encounter Summary ---
Author Organization [facility] Address [address] [facility] [place] [address] Care Team Providers Care Soft Metals Hand Engraver Name Role Phone LizbethNigel lopez Primary Care Provider [phone] Encounter Details Date Type Department Care Team (Late st Contact Info) Description 05/20/2020 Lab Requisition [facility] [address] [facility], [place] [phone] Annelise Liang MD [address] [facility] 3 [place] [address] Social History Tobacco Use Types Packs/Day Years [...] AM CDT) Case Report Dermatopathology Report Case: [id number] Authorizing Provider: Annelise Liang MD Collected: 05/19/2020 12:00 AM Ordering Location: [facility] Derm[facility] Lab Received: 05/20/2020 06:45 AM Pathologist: [...] The specimen consists of a shave measuring [id number]. Jar 0. 0 2:11 PM CDT DERMATOPATHOLOGY [...] characteristic determined by the Dermatopathology Laboratory at [facility], directed by Dr. Letty Zuniga. These tests need not be, and therefore are not, approved by the [place] Food and Drug Administration. The tests are used for clinical purposes. Billing Codes Specimen Charges Stain Charges 83875 1 0 2:11 PM CDT DERMATOPATHOLOGY LABORATORY Embedded Images 0 2:11 PM CDT DERMATOPATHOLOGY LABORATORY Pathology/Cytolog y TISSUE SPECIMEN FROM SKIN / Unknown 05/19/2020 05/20/2020 6:45 AM CDT us Annelise Liang MD LAB - PATHOLOGY/CYTOLOGY ORD ERABLES Final Result DERMATOPATHOLOGY LABORATORY [facility] - Department of Dermatology [facility] [phone] documented in this encounter Visit Diagnoses Not on filedocumented in this encounter Care Teams Soft Metals Hand Engraver Relationship Specialty Start Date End Date Nigel Piña DO PCP - General 08/26/20 documented as of this encounter
--- OUTSIDE RECORDS SUMMARY | 2025-06-18 14:28 | XMS_ITS | Encounter Summary ---
Author Organization [facility] Address [address] [facility] [place] [address] Care Team Providers Care Car Unloader Name Role Phone LizbethNigel lopez Primary Care Provider Encounter Details Date Type Department Care Team (Late st Contact Info) Description 02/08/2019 Lab Requisition [facility] [address] [facility], [place] [phone] Annelise Liang MD [address] [facility] 3 [place] [address] Social History Tobacco Use Types Packs/Day Years [...] AM CDT) Case Report Dermatopathology Report Case: [id number] Authorizing Provider: Annelise Liang MD Collected: 02/07/2019 [...] characteristic determined by the Dermatopathology Laboratory at [facility], directed by Dr. Letty Zuniga. These tests need not be, and therefore are not, approved by the [place] Food and Drug Administration. The tests are used for clinical purposes. Billing Codes Specimen Charges Stain Charges 71332 1 2:23 PM CDT DERMATOPATHOLOGY LABORATORY Embedded Images 2:23 PM CDT DERMATOPATHOLOGY LABORATORY Pathology/Cytolog y TISSUE SPECIMEN FROM SKIN / Unknown 02/07/2019 02/08/2019 6:17 AM CDT Annelise Liang MD LAB - PATHOLOGY/CYTOLOGY ORD ERABLES Final Result DERMATOPATHOLOGY LABORATORY [facility] - Department of Dermatology [facility] [facility], 5th Floor Lab B [address] [phone] documented in this encounter Visit Diagnoses Not on filedocumented in this encounter Care Teams Car Unloader Relationship Specialty Start Date End Date Nigel Piña DO PCP - General 08/26/20 documented as of this encounter
== END 2025-06-18 14:14 | disposition home or self-care (01) ==
LOC: ANHFOHIMG 14:14
PROVIDERS: PCP Clinical Nurse Specialist; Visit Provider Nurse Practitioner
DX: Z12.31 Encounter for screening mammogram for malignant neoplasm of breast (principal)
CPT/HCPCS: 77063; 77067

== ENCOUNTER 2025-09-16 07:56 | Outpatient (CLI) | payer MEDICARE, SELFPAY ==
--- OUTSIDE RECORDS SUMMARY | 2025-08-30 09:30 | XMS_ITS ---
Author Organization [facility] Address [address] [facility] [place] [address] Care Team Providers Care Charge Authorizer Name Role Phone Nigel Piña Primary Care Provider UnavailNORMA Tarango Unavailable [phone] Allergies No Known Allergies REASON FOR VISIT BILATERAL Medications Medication SIG (Take, Route, Frequency, Duration) Notes Start Date End Date Status Sertraline HCl 100 MG Tablet 1 tablet Orally Once a day A ctive B Complex Active Vitamin D Active ZyrTEC Active Calcium Active Stool Softener Activ e Social History Tobacco Use: Social History Observation Description Date Details (start date - stop date) Never Smoker NA - NA Social History Drugs/Alcohol: Social Info Question Answer Notes Caffeine Intake: 1-2 cups per day Tobacco Use: Social Info Question Answer Notes Tobacco Control (Standard) Tobacco use: Nonsmoker Additional Details Category Social Info Options Details Drugs/Alcohol: Do you smoke marijuana? De nies Do you drink alcohol? No Vital Signs Blood pressure systolic 136 mm Hg 08/30/20 25 Blood pressure diastolic 80 mm Hg 025 Heart Rate 71 /min 08/30/2025 Respiratory Rate 16 /min 08/30/2025 Height 64 in 08/30/2025 Weight 109 lbs 08/30/2025 BMI 18.71 kg/m2 08/30/2025 Encounters Encounter Location Date Provider Diagnosis [facility] [address] [place] [address] 08/30/2025 NORMA ORTIZ Plan Of Treatment Next Appt Details Provider Name:NORMA WEISS, 02/03/2026 08:30:00 AM, [address], [place], [address], Progress Notes * Laith COSME:1960 (65 yo F)Acc No.[id number]:08/30/2025 Patient: Yulia Pride Provider: Kathleen Ortiz MD :1960 A ge:64 Y S ex:Female Date:08/30/2025 Address:[address] [place] [address] Pcp:Nigel Piña Subjective: * Chief Complaints: * B ILATERAL * Medical History: No Medical History Documented Medical History Verified * Surgical History: Lipo Lymphedema 2019 Hystercetomy 1986 Surgical History verified. * Hospitalization/Major Diagno stic Procedure: No Hospitalization Documented. Hospitalization Verified. * Family History: N o Family History documented.. F amily History Verified.. * Social History: T obacco Use: T obacco Control (Standard) T obacco use: N onsmoker D rugs/Alcohol: C affeine I ntake: 1 -2 cups per day Do you smoke marijuana?: Denies. Do you drink alcohol?: No. S ocial History Verified. * Medications: T akingStool Softener ZyrTEC Calcium B Complex Vitamin D Sertraline HCl 100 MG Tablet 1 tablet Orally Once a day Medication List reviewed and reconciled with the patientTaking Stool Softener Taking ZyrTEC Taking Calcium Taking B Complex Taking Vitamin D Taking Sertraline HCl 100 MG Tablet 1 tablet Orally Once a day Medication List reviewed and reconciled with the patient * Allergies: N .K.D.A.yesAllergies Verified. Objective: * Vitals: O 2: 94, WT: 109 lbs, BP:136/80mm Hg, HR:71/min, Wt:109lbs, BMI:18.71Index, Ht: 64 in, RR:16/min. * Electronic signature of LETY ORTIZ MD on 09/16/2025 at 08:07 AM PRODUCTION TOOL ENGINEER Sign off status: Pending * Provider: Kathleen Ortiz MD Date: 10/31/2024 Generated for Meri brumfield/Rhiannon/eTransmitting on: 11/17/2024 08:07 AM PRODUCTION TOOL ENGINEER
--- OUTSIDE RECORDS SUMMARY | 2025-09-10 10:45 | XMS_ITS ---
Author Organization [facility] Address [address] [place] [address] Care Team Providers Care Automobile Upholstery Trim Installer Name Role Phone Nigel Piña Primary Care Provider UnavailNORMA Tarango Unavailable [phone] Encounters Encounter Location Date Provider Diagnosis [facility] [address] [place] [address] 09/10/2025 NORMA ORTIZ Plan Of Treatment Next Appt Details Provider Name:NORMA WEISS, 02/03/2026 08:30:00 AM, [address], [place], [address], Progress Notes * Jose COSMEOB:1960 (65 yo F)Acc No.[id number]:09/10/2025 Progress Notes Patient: Yulia Pride Provider: Kathleen Ortiz MD :1960 A ge:65 Y S ex:Female Date:09/10/2025 Address:[address] [place], [place] [id number] Pcp:Nigel Piña * Electronic signature of LETY ORTIZ MD on 09/16/2025 at 08:07 AM MANAGER WORKERS COMPENSATION Sign off status: Pending * Provider: Kathleen Ortiz MD Date: 11/11/2024 Generated for Kylahi brissa/Rhiannon/eTransmitting on: 11/17/2024 08:07 AM MANAGER WORKERS COMPENSATION
--- NOTE | ~2025-09-16 | DEXA_ITS ---
Bone Density Report Name: DARIN COSME Age: 65 Sex: Female Ethnicity: White Date of : 1960 Indication: osteopenia; monitoring treatment; height loss; prior fracture; hysterectomy; Referring Provider: SALAZAR JONES Study: Bone densitometry was performed. Exam Date: September 16, 2025 Accession number: [id number] Bone Density: Region BMD T-score Z-score Classification AP Spine(L1-L4) 0.831 -2.0 -0.1 Osteopenia Femoral Neck (Left) 0.542 -2.8 -1.2 Osteoporosis Total Hip (Left) 0.673 -2.2 -0.9 Osteopenia Femoral Neck (Right) 0.566 -2.5 -1.0 Osteoporosis Total Hip (Right) 0.654 -2.4 -1.1 Osteopenia Total Hip Mean 0.664 -2.3 -1.0 Osteopenia World Health Organization criteria for BMD impression classify patients as: Normal (T-score at or above -1.0), Osteopenia (T-score between -1.0 and -2.5), or Osteoporosis (T-score at or below -2.5). 10-year Fracture Risk: FRAX not reported because: Some T-score for Spine Total or Hip Total or Femoral Neck at or below -2.5 Treated for osteoporosis Previous Exams: Region Exam Age BMD T-score BMD Change BMD Change Date g/cm2 vs Baseline vs Previous AP Spine (L1-L4) 09/16/2025 65 0.831 -2.0 0.094 (12.8%)* 0.036 (4.5%)* 09/15/2023 63 0.795 -2.3 0.058 (7.9%)* 0.013 (1.6%) 07/02/2021 60 0.782 -2.4 0.046 (6.2%)* 0.021 (2.7%) 06/02/2019 58 0.761 -2.6 0.025 (3.4%)* 0.022 (3.0%) 02/28/2017 56 0.739 -2.8 0.003 (0.3%) 0.003 (0.3%) 03/06/2015 54 0.737 -2.8 Total Hip(Left) 09/16/2025 65 0.673 -2.2 -0.007 (-1.1%) -0.020 (-2.9%) 09/15/2023 63 0.693 -2.0 0.013 (1.9%) 0.028 (4.3%)* 07/02/2021 60 0.665 -2.3 -0.015 (-2.2%) 0.015 (2.3%) 06/02/2019 58 0.650 -2.4 -0.030 (-4.4%) -0.088 (-12.0% 02/28/2017 56 0.738 -1.7 0.059 (8.6%)* 0.059 (8.6%)* 03/06/2015 54 0.680 -2.1 Total Hip(Right) 09/16/2025 65 0.654 -2.4 0.008 (1.3%) 0.008 (1.2%) 09/15/2023 63 0.646 -2.4 0.000 (0.1%) 0.010 (1.5%) 07/02/2021 60 0.637 -2.5 -0.009 (-1.4%) -0.032 (-4.8%) 06/02/2019 58 0.669 -2.2 0.023 (3.5%) -0.042 (-5.9%) 02/28/2017 56 0.711 -1.9 0.065 (10.0%)* 0.065 (10.0%)* 03/06/2015 54 0.646 -2.4 *Denotes significance at 95% confidence level, LSC for AP Spine = 0.022 g/cm2, LSC for Total Hip = 0.027 g/cm2 Clinical Information Provided by Patient: Has had a low trauma fracture Is being treated for osteoporosis Has used the following medications: Boniva (i.e. ibandronate), Fosamax (i.e. alendronate), Prolia (i.e. denosumab), Vitamin D, Calcium Has the following medical conditions: Hysterectomy Patient maximum height was 65.0 Menopause Age: 49 Onset of menses at age 12 Number of children 2 Impression: The patient has established osteoporosis, based on the Left Femoral Neck T-score and the existence of a prior fracture. The patient has risk factors, including: previous fracture. No significant bone loss was observed. Discussion: PATIENT UNDER TREATMENT WITH NO SIGNIFICANT BMD LOSS SINCE LAST EXAM. In an untreated patient, BMD typically declines with age. A lack of decline or gain is usually a sign that treatment is efficacious and fracture risk is reduced. It is important to ask patients whether they are taking their medications and to encourage continued and appropriate compliance with their osteoporosis therapies to reduce fracture risk. It is also important to review their risk factors and encourage appropriate calcium and vitamin D intakes, exercise, fall prevention and other lifestyle measures. Follow-Up: Consider a repeat BMD and Vertebral Fracture Assessment (VFA) exam in 2 years or sooner if medically necessary, to reassess this patient's status. Reported by: RODOLFO on 09/16/2025 8:38:00 AM. Reviewed, dictated and finalized at location A.
--- OUTSIDE RECORDS SUMMARY | 2025-09-16 08:07 | XMS_ITS | Encounter Summary ---
Author Organization [facility] Address [address] [facility] [place] [address] Care Team Providers Care Supervisor Bottle House Cleaners Name Role Phone Josephsarina Nigel Nyasia QUIÑONES Primary Care Provider Encounter Details Date Type Department Care Team (Late st Contact Info) Description 06/20/2025 Lab Requisition [facility] - DermPath Lab [address] [facility], [place] [phone] Annelise Liang MD [address] [facility] 3 [place] [address] Neoplasm of uncertain behavior of skin Social History Tobacco Use Types Packs/Day Years [...] Priority Date/Time Associated Diagnosis Comments DERMATOPATHOLOGY Routine 06/20/2025 8:00 AM CDT Neoplasm of uncertain behavior of skin documented in this encounter Results * DERMATOPATHOLOGY (06/20/2025 8:00 AM CDT) Case Report Dermatopathology Report Case: [id number] Authorizing Provider: Annelise Liang MD Collected: 06/20/2025 08:00 AM Ordering Location: [facility] - Received: 06/21/2025 06:42 AM DermPath Lab Pathologist: Gloria Esquivel MD Specimen: Skin, right knee 3:05 PM CDT DERMATOPATHOLOGY LABORATORY Final Diagnosis Specimen A. SKIN, right knee: VERRUCA VULGARIS (B07.8) 3:05 PM CDT DERMATOPATHOLOGY LABORATORY at 1505 CDT Clinical History R/O SCC vs Verruca Vulgaris vs HAK 3:05 PM CDT DERMATOPATHOLOGY LABORATORY Gross Description Specimen A: Received is one formalin filled container labeled with the patient's name and designated right knee. The specimen consists of a shave biopsy measuring 5x5x2 mm. Jar 0. 3:05 PM CDT DERMATOPATHOLOGY LABORATORY Microscopic Description Specimen A. SKIN, right knee: There is digitated epidermal hyperplasia, hypergranulosis, vacuolated granular layer cells, and compact hyperorthokeratosis . 3:05 PM CDT DERMATOPATHOLOGY LABORATORY Disclaimer An external and internal positive and negative controls are appropriate for the histochemical, immunohistochemical and immunofluorescence stain(s) in this case (if any), except where stated explicitly. The performance characteristics of the stain(s) cited in this report were developed and its performance characteristic determined by the Dermatopathology Laboratory at [facility], directed by Dr. Letty Zuniga. These tests need not be, and therefore are not, approved by the [place] Food and Drug Administration. The tests are used for clinical purposes. Billing Codes Specimen Charges Stain Charges 36142 1 3:05 PM CDT DERMATOPATHOLOGY LABORATORY Embedded Images 3:05 PM CDT DERMATOPATHOLOGY LABORATORY Pathology/Cytolo gy TISSUE SPECIMEN FROM SKIN / Unknown 06/20/2025 8:00 AM CDT 06/21/2025 6:42 AM CDT us Annelise Liang MD LAB - PATHOLOGY/CYTOLOGY ORD ERABLES Final Result DERMATOPATHOLOGY LABORATORY [facility] - Department of Dermatology [facility] Specialized Medicine [address] [place] [address], [address] [phone] documented in this encounter Visit Diagnoses Diagnosis Neoplasm of uncertain behavior of skin documented in this encounter Care Teams Supervisor Bottle House Cleaners Relationship Specialty Start Date End Date Nigel Piña DO PCP - General 08/26/20 documented as of this encounter
--- OUTSIDE RECORDS SUMMARY | 2025-09-16 08:07 | XMS_ITS | Encounter Summary ---
Author Organization [facility] Address [address] [facility] [place] [address] Care Team Providers Care Poacher Wringer Operator Name Role Phone LizbethNigel lopez Primary Care Provider [phone] Encounter Details Date Type Department Care Team (Late st Contact Info) Description 02/08/2019 Lab Requisition [facility] [address] [facility], [place] [phone] Annelise Liang MD [address] [facility] 3 [place] [address] Social History Tobacco Use Types Packs/Day Years [...] AM CDT) Case Report Dermatopathology Report Case: [id number] Authorizing Provider: Annelise Liang MD Collected: 02/07/2019 [...] by the Dermatopathology Laboratory at [facility], directed by Dr. Letty Zuniga. These tests need not be, and therefore are not, approved by the [place] Food and Drug Administration. The tests are used for clinical purposes. Billing Codes Specimen Charges Stain Charges 36370 1 2:23 PM CDT DERMATOPATHOLOGY LABORATORY Embedded Images 2:23 PM CDT DERMATOPATHOLOGY LABORATORY Pathology/Cytolog y TISSUE SPECIMEN FROM SKIN / Unknown 02/07/2019 02/08/2019 6:17 AM CDT Annelise Liang MD LAB - PATHOLOGY/CYTOLOGY ORD ERABLES Final Result DERMATOPATHOLOGY LABORATORY [facility] - Department of Dermatology [facility]5 [facility], 5th Floor Lab [address] [phone] documented in this encounter Visit Diagnoses Not on filedocumented in this encounter Care Teams Poacher Wringer Operator Relationship Specialty Start Date End Date Nigel Piña DO PCP - General 08/26/20 documented as of this encounter
--- OUTSIDE RECORDS SUMMARY | 2025-09-16 08:07 | XMS_ITS | Encounter Summary ---
Author Organization [facility] Address [address] [facility] [place] [address] Care Team Providers Care Heat Transfer Technician Name Role Phone Ayana Nigel Nyasia QUIÑONES Primary Care Provider Encounter Details Date Type Department Care Team (Late st Contact Info) Description 06/18/2024 Lab Requisition [facility]erm[facility] Lab [address] [facility], [place] [phone] Annelise Liang MD [address] [facility] 3 [place] [address] Social History Tobacco Use Types Packs/Day Years [...] AM CDT) Case Report Dermatopathology Report Case: [id number] Authorizing Provider: Annelise Liang MD Collected: 06/18/2024 08:20 AM Ordering Location: [facility] - Received: 06/18/2024 04:23 PM [...] characteristic determined by the Dermatopathology Laboratory at [facility], directed by Dr. Letty Zuniga. These tests need not be, and therefore are not, approved by the [place] Food and Drug Administration. The tests are used for clinical purposes. Billing Codes Specimen Charges Stain Charges 62382 1 1:34 PM CDT DERMATOPATHOLOGY LABORATORY Embedded Images 1:34 PM CDT DERMATOPATHOLOGY LABORATORY Pathology/Cytolo gy TISSUE SPECIMEN FROM SKIN / Unknown 06/18/2024 8:20 AM CDT 06/18/2024 4:23 PM CDT us Annelise Liang MD LAB - PATHOLOGY/CYTOLOGY ORD ERABLES Final Result DERMATOPATHOLOGY LABORATORY [facility] - Department of Dermatology [facility] Specialized Medicine [address] [place] [address], [address] [phone] documented in this encounter Visit Diagnoses Not on filedocumented in this encounter Care Teams Heat Transfer Technician Relationship Specialty Start Date End Date Nigel Piña DO PCP - General 08/26/20 documented as of this encounter
--- OUTSIDE RECORDS SUMMARY | 2025-09-16 08:07 | XMS_ITS | Encounter Summary ---
Author Organization [facility] Address [address] [facility] [place] [address] Care Team Providers Care Hand I Thermal Cutter Name Role Phone LizbethNigel lopez Primary Care Provider [phone] Encounter Details Date Type Department Care Team (Late st Contact Info) Description 05/20/2020 Lab Requisition [facility] [address] [facility], [place] [phone] Annelise Liang MD [address] [facility] 3 [place] [address] Social History Tobacco Use Types Packs/Day Years [...] AM CDT) Case Report Dermatopathology Report Case: [id number] Authorizing Provider: Annelise Liang MD Collected: 05/19/2020 12:00 AM Ordering Location: [facility] DermPath Lab Received: 05/20/2020 06:45 AM [...] The specimen consists of a shave measuring 3q3c0tt. Jar 0. 0 2:11 PM CDT DERMATOPATHOLOGY [...] characteristic determined by the Dermatopathology Laboratory at [facility], directed by Dr. Letty Zuniga. These tests need not be, and therefore are not, approved by the [place] Food and Drug Administration. The tests are used for clinical purposes. Billing Codes Specimen Charges Stain Charges 70021 1 0 2:11 PM CDT DERMATOPATHOLOGY LABORATORY Embedded Images 0 2:11 PM CDT DERMATOPATHOLOGY LABORATORY Pathology/Cytolog y TISSUE SPECIMEN FROM SKIN / Unknown 05/19/2020 05/20/2020 6:45 AM CDT us Annelise Liang MD LAB - PATHOLOGY/CYTOLOGY ORD ERABLES Final Result DERMATOPATHOLOGY LABORATORY [facility] - Department of Dermatology [facility]/[address] [phone] documented in this encounter Visit Diagnoses Not on filedocumented in this encounter Care Teams Hand I Thermal Cutter Relationship Specialty Start Date End Date Nigel Piña DO PCP - General 08/26/20 documented as of this encounter
--- OUTSIDE RECORDS SUMMARY | 2025-09-16 08:07 | XMS_ITS | Clinical Summary ---
Author Organization [facility] [employer] Address [address] [place] [address] Care Team Providers Care Center Rep Name Role Phone Ayana Nigel Nyasia QUIÑONES Primary Care Provider Source Comments [facility] [employer],non-owned Affiliates and Associated Physician Practices is amultiple site organization consisting of ambulatory clinics and hospital sitesin [place], [place], [place] and [place]. This disclosure is being madepursuant to the Care Everywhere program and may not contain all information available regarding this patient. Last updated 18.[facility] [employer] Allergies No known active allergies Medications * [...] LSM, kPa 6.0 CAP 149 Osteoporosis 03/20/2020 Encounters Date Type Department Care Team Description 06/20/2025 Lab Requisition [facility] - DermPath Lab [address] [facility], [place] [phone] Annelise Liang MD Neoplasm of uncertain behavior of skin from Last 3 Months Family History Medical History Relation Name Comments [...] SCREENING 1960 LIPID TESTING 1960 MAMMOGRAM 1960 DTAP/TDAP/TD VACCINES (1 - Tdap) 1978 PNEUMOCOCCAL VACCINE 50+ (1 of 2 - PCV) 1978 Respiratory Syncytial Virus (RSV) Vaccine Pt: or over 60 yrs (1 - Risk 50-74 years 1-dose series) 2009 ZOSTER VACCINE (1 of 2) 2009 HEPATITIS B VACCINE (1 of 3 - Risk 3-dose series) 2019 DEPRESSION SCREENING 09/26/2024 MEDICARE AWV CALENDAR YEAR 2024 COVID-19 VACCINE (2 season) 2025 01/03/2021 INFLUENZA VACCINE (#1) 2025 [...] CDT Neoplasm of uncertain behavior of skin HEPATITIS C RNA QUANTITATIVE Routine 07/02/2021 7:08 AM CDT Chronic hepatitis C without hepatic coma from Last 3 Months or Most Recently Relevant to Health Maintenance Results * DERMATOPATHOLOGY (06/20/2025 8:00 AM CDT) Case Report Dermatopathology Report Case: [id number] Authorizing Provider: Annelise Liang MD Collected: 06/20/2025 08:00 AM Ordering Location: [facility] - Received: 06/21/2025 06:42 AM DermPath [...] characteristic determined by the Dermatopathology Laboratory at [facility], directed by Dr. Letty Zuniga. These tests need not be, and therefore are not, approved by the [place] Food and Drug Administration. The tests are used for clinical purposes. Billing Codes Specimen Charges Stain Charges 35601 1 3:05 PM CDT DERMATOPATHOLOGY LABORATORY Embedded Images 3:05 PM CDT DERMATOPATHOLOGY LABORATORY Pathology/Cytolo gy TISSUE SPECIMEN FROM SKIN / Unknown 06/20/2025 8:00 AM CDT 06/21/2025 6:42 AM CDT us Annelise Liang MD LAB - PATHOLOGY/CYTOLOGY ORD ERABLES Final Result DERMATOPATHOLOGY LABORATORY [facility] - Department of Dermatology [facility] [address] [place] [address], 3rd [place] [address], [facility] [phone] * HEPATITIS C RNA QUANTITATIVE (07/02/2021 7:08 [...] Resulting Agency Comment Lab Testing performed at: [facility] [address] [place] [id number] Norah Griffin CIRCULAR KNITTER-REFRIGERATING ENGINEER LAB - CHEMISTRY BELA ZAMBRANO Final Result [facility] INSURANCE BILL [address] [place] [address] from Last 3 Months or Most Recently Relevant to Health Maintenance Insurance [employer] MEDICARE ADV SELF PAY NO INSURANCE Member Subscriber Plan / Payer (Ef fective for All Dates) Name:Yulia Cosme Member ID:Not on file Relation to Subscriber:Not on file Name:YULIA COSME Subscriber ID:Not on file (Home) Address: [address] [place] [id number] Payer ID:Not on file Group ID:Not on file Type:Self Pay Address: [place], [place] Care Teams Center Rep Relationship Specialty Start Date End Date Nigel Piña DO PCP - General 08/26/20
--- OUTSIDE RECORDS SUMMARY | 2025-09-16 08:07 | XMS_ITS | Patient Health Record ---
Author Organization [facility] Address [address] [facility] [place] [address] Care Team Providers Care Systems Technologist Name Role Phone Nigel Piña Primary Care Provider UnavailNORMA Tarango Unavailable [phone] Allergies No Known Allergies Reason For Referral No Information Medications Medication SIG (Take, Route, Frequency, Duration) [...] De nies Do you drink alcohol? No Problems Problem Type SNOMED Code ICD Code Onset Dates Problem Status W/U Status Risk Notes Problem Lipomatosis (242800941) Lipomatosis, not elsewhere classified (E88.2) Active confirmed Problem Pain co-occurrent and due to varicose veins of bilateral legs (996764956711571 00) Varicose veins of bilateral lower extremities with pain (I83.813) Active confirmed Problem Lymphedema (826874758) Lymphedema of both lower extremities (I89.0) Active confirmed Vital Signs Heart Rate 71 /min 08/30/2025 Respiratory Rate 16 /min 08/30/2025 Blood pressure diastolic 80 mm Hg 08/30/2025 Height 64 in 08/30/2025 Blood pressure systolic 136 mm Hg 08/30/2025 Weight 109 lbs 08/30/2025 BMI 18.71 kg/m2 08/30/2025 Encounters Encounter Location Date Provider Diagnosis [address] [place] [address] [phone] 08/19/2025 NORMA ORTIZ [facility] [address] [place] [address] 08/30/2025 NORMA ORTIZ [facility] [address] [place] [address] 09/10/2025 NORMA ORTIZ [facility] [address] [place] [address] 08/30/2025 NORMA ORTIZ Pain in left leg M79.605 ; Lipomatosis, not elsewhere classified E88.2 ; Lymphedema of both lower extremities I89.0 ; Varicose veins of bilateral lower extremities with pain I83.813 and Phlebitis and thrombophlebitis of iliac vein, bilateral I80.[address] [address] 09/10/2025 NORMA ORTIZ Pain in left leg M79.605 ; Lipomatosis, not elsewhere classified E88.2 ; Lymphedema of both lower extremities I89.0 ; Varicose veins of bilateral lower extremities with pain I83.813 and Phlebitis and thrombophlebitis of iliac vein, bilateral I80.213 [facility] [address] [place] [address] 08/21/2025 NORMA ORTIZ [facility] [address] [place] [address] 09/15/2025 NORMA ORTIZ [address] [address] 08/31/2025 NORMA ORTIZ [facility] [address] [place] [address] 09/01/2025 NORMA ORTIZ Assessments Encounter Date Diagnosis (ICD Code) Assessment Notes Treatment Notes Treatment Clinical Notes Section Notes 08/30/2025 Pain in left leg (ICD-10 - M79.605) 08/30/2025 Lipomatosis, not elsewhere classified (ICD-10 - E88.2) 09/10/2025 Pain in left leg (ICD-10 - M79.605) Has some diffuse narrowings in the iliacs but flow ok-has a lots of mm aches-will max med rx first-stenting small size veins relatively difficult to bring about sustained good clinical results even if needed[high chance to thrombose.Will max med rx with compression/opc-3 anti-inflammatorie s 08/30/2025 Lymphedema of both lower extremities (ICD-10 - I89.0) Leg Measurements: Left Calf:14 inch Left Ankle:12 inch Right Calf: Right Ankle: This case of Lymphedema is caused by: _X_ Stage II Lymphedema, not elsewhere classified [I89.0] SYMPTOMS DESPITE CONSERVATIVE THERAPY: ___ Hyperkeratosis/ fibrosis _X_ Hyperplasia _X_ Hyperpigmentation ___ Skin breakdown with lymphorrhea (skin weeping) ___ Papillomatosis ___ Recurrent cellulitis ___ Elephantiasis ___ Progressive edema _X_ Truncal/abdominal lymphedema ___ Genital swelling _X_ Unable to control swelling _X_ Impaired ROM _X_ Impaired mobility ___ Pain CONSERVATIVE TREATMENT: Patient has tried the following conservative treatments yet swelling remains. _X_ Compression garments: >4 WEEKS _X_ Elevation: >4 WEEKS _X_ Exercise: >4 WEEKS PNEUMATIC COMPRESSION DEVICE EVALUATION: Patient has tried an E0651 basic pneumatic compression device? [YES or NO]will need pt/ot for le/le pumpupgrade by tacrtile 09/10/2025 Lipomatosis, not elsewhere classified (ICD-10 - E88.2) 08/30/2025 Varicose veins of bilateral lower extremities with pain (ICD-10 - I83.813) Recommend use of 20-30mmhg graduated compression stockings today. Will continue with all conservative measures, including compression stockings, leg elevation, exercise, and NSAID-s. Will schedule for VRS of BLE to better understand patient's venous disease. Further recommendations will follow. Venous reflux studies demonstrate significant venous reflux disease in the right ssv/lower extremities. Will start conservative therapy with compression stockings, leg elevation, exercise and NSAID-s. Further recommendations will follow. 09/10/2025 Lymphedema of both lower extremities (ICD-10 - I89.0) Stable-modest lymphedema 09/10/2025 Varicose veins of bilateral lower extremities with pain (ICD-10 - I83.813) 08/30/2025 Phlebitis and thrombophlebitis of iliac vein, bilateral (ICD-10 - I80.213) Has symptoms of venous claudication,will check for iliac vein obstruction 09/10/2025 Phlebitis and thrombophlebitis of iliac vein, bilateral (ICD-10 - I80.213) Med rx for now Plan Of Treatment Next Appt Details Provider Name:NORMA Camilo TAMMIE WEISS, 02/03/2026 08:30:00 AM, [address], [place], [address], Insurance Providers Payer Name Payer Address Payer Phone Subscriber Number Group Number Insured Name Patient Relationship to Insured Coverage Start Date Coverage End Date A[employer] Medicare [address] PRAFUL Cook [phone] [id number] Yulia Hung Self - patient is the insured Medical (General) History Surgical History Surgery Date(Month/Year) Lipo Lymphedema 2019 Hystercetomy 1986
== END 2025-09-16 07:57 | disposition home or self-care (01) ==
LOC: ANHFOHIMG 07:57
PROVIDERS: PCP Clinical Nurse Specialist; Visit Provider Clinical Nurse Specialist
DX: Z78.0 Asymptomatic menopausal state (principal); M85.88 Other specified disorders of bone density and structure, other site; M81.0 Age-related osteoporosis without current pathological fracture; M85.852 Other specified disorders of bone density and structure, left thigh; M85.851 Other specified disorders of bone density and structure, right thigh
CPT/HCPCS: 77080